=== PATIENT | female | born 1950 | race Caucasian/White ===

== ENCOUNTER 2021-01-31 04:16 | Observation (INO) ==
[2021-01-31] MEDS ORDERED: MoRPHine SULFATE 4 MG/ML 1 ML CARP\\VIAL IV STA (04:41)
[2021-01-31] MEDS ORDERED: ONDANSETRON INJ 2 MG/ML 2 ML VIAL IV STA (04:41)
[2021-01-31] MEDS ORDERED: SODIUM CHLORIDE 0.9% 500 ML IV STA (04:41)
--- NOTE | 2021-01-31 04:47 | Emergency Department Note ---
History of Present Illness General Chief complaint: Abdominal Pain Stated complaint: ABD PAIN AND BACK PAIN,NAUSEA Time Seen by Provider: 01/31/21 04:32 History of Present Illness Maximum Pain Intensity: 8 This 71-year-old presents to the ER complaining of upper abdominal pain with nausea since 2 AM Location: Upper abdomen Quality: Painful Severity: Moderate Duration: Today Timing: Today Context: Patient was concerned and came in Modifying factors: better with nothing; worse with palpation Patient denies chest pain, dyspnea, vomiting, diarrhea, urinary symptoms. Patient had lasagna for dinner. No history of similar symptoms in the past. No prior heart disease. She does not smoke. She has received the Covid vaccine. Past Med/Surg History Medical History High blood pressure Surgical History H/O section Social History Smoking Status: Former smoker Feels Safe at Home: Yes Review of Systems A total of 10 systems reviewed and were otherwise negative Physical Exam Vital Signs Vital Signs - 24 hr 01/31/21 04:20 01/31/21 04:41 01/31/21 05:40 Temperature 36.9 C Temperature Source Temporal Artery Scan Pulse Rate 63 58 L Pulse Rate [Brachial] 58 L 55 L Respiratory Rate 18 18 20 Respiratory Effort / Characteristics Non-Labored Spontaneous Respiratory Depth Normal Blood Pressure 212/97 H Blood Pressure [Left Arm] 211/99 H 212/93 H Blood Pressure Mean 135 Blood Pressure Mean [Left Arm] 136 132 Pulse Oximetry 98 98 94 Oxygen Delivery Method Room Air Room Air Room Air Sepsis Recent Fever Within 48 Hours No Sepsis New/Unexplained Change in Mental Status N/A Sepsis Action Taken by Nursing No Action Required VITALS: Vitals are noted on the nurse's note and reviewed by myself. Vital signs hypertensive. GENERAL: Pleasant female who appears in pain, in no acute distress, nondiaphoretic, well-developed well-nourished. SKIN: The skin was without rashes, erythema, edema, or bruising. There is no tenting of the skin. Capillary reflex less than 2 seconds. HEAD: Normocephalic atraumatic. EARS: External auditory canals clear, EYES: Pupils equal round and reactive to light and accommodation. Conjunctivae without injection, sclerae without icterus. Extraocular movements intact. NOSE: Patent, turbinates without inflammation or discharge. MOUTH: Mucous membranes moist. Pharynx without erythema or exudate. Uvula midline. Airway patent. Tongue does not deviate. NECK: Supple without nuchal rigidity. No lymphadenopathy. No thyromegaly. Cervical spine is nontender. No JVD. HEART: Regular rate and rhythm LUNGS: Clear to auscultation bilaterally without wheezes, rales or rhonchi. No retractions or accessory muscle use. ABDOMEN: Positive bowel sounds x 4. Normal tympanic percussion. Soft, tender to palpation right upper quadrant, without masses or organomegaly. No guarding or rebound tenderness. No CVA tenderness MUSCULOSKELETAL: No muscle atrophy, erythema, or edema noted. NEURO: Patient was alert and oriented to person place and time. Normal sensation to light and sharp touch. No focal neurological deficits. Course Administered Medications Discontinued Medications Sodium Chloride (Nss) 500 mls @ 999 mls/hr IV .Q31M STA Stop: 01/31/21 05:11 Last Infusion: 01/31/21 05:35 Dose: 0 mls/hr Documented by: [id number] Admin: 01/31/21 04:59 Dose: 999 mls/hr Documented by: [id number] Morphine Sulfate (Morphine Sulfate 4 Mg/Ml 1 Ml Carp\Vial) 4 mg IV NOW STA Stop: 01/31/21 04:42 Last Admin: 01/31/21 04:59 Dose: 4 mg Documented by: [id number] Ondansetron HCl (Ondansetron Inj 2 Mg/Ml 2 Ml Vial) 4 mg IV NOW STA Stop: 01/31/21 04:42 Last Admin: 01/31/21 04:59 Dose: 4 mg Documented by: [id number] Medical Decision Making Medical Records Attestation: I reviewed the patient's medical records. Home Medications Current Medication List: was personally reviewed by me Laboratory Data Attestation: I reviewed the patient's lab results. Result diagrams: 01/31/21 04:45 01/31/21 04:45 Lab Results 01/31/21 01/31/21 Range/Units 04:45 04:45 WBC 5.53 (4.8-10.8) K/uL RBC 4.16 L (4.2-5.4) M/uL Hgb 12.1 (12.0-16.0) g/dL Hct 38.4 (37-47) % MCV 92.3 (80-100) fL MCH 29.1 (25-34) pg MCHC 31.5 L (32-36) g/dL RDW Std Deviation 45.2 (36.4-46.3) fL RDW Coeff of Carey 13.4 (11.5-14.5) % Plt Count 287 (130-400) K/uL MPV 10.6 H (7.4-10.4) fL Immature Gran % (Auto) 0.0 % Neut % (Auto) 59.2 % Lymph % (Auto) 24.2 % Blount % (Auto) 10.5 % Eos % (Auto) 5.4 % Baso % (Auto) 0.7 % Neut # (Auto) 3.27 (1.4-6.5) K/uL Lymph # (Auto) 1.34 (1.2-3.4) K/uL Blount # (Auto) 0.58 (0.11-0.59) K/uL Eos # (Auto) 0.30 (0-0.5) K/uL Baso # (Auto) 0.04 (0-0.2) K/uL Immature Gran # (Auto) 0.00 (0.00-0.02) K/uL Sodium 138 (136-145) mmol/L Potassium 4.0 (3.5-5.1) mmol/L Chloride 107 (98-107) mmol/L Carbon Dioxide 27 (21-32) mmol/L Anion Gap 4.0 (3-11) BUN 24 H (7-18) mg/dl Creatinine 0.52 L (0.6-1.2) mg/dl Est Cr Clr Drug Dosing 88.3 ml/min Est GFR ( Amer) 113.0 ml/min Est GFR (Non-Af Amer) 97.5 ml/min BUN/Creatinine Ratio 46.0 H (10-20) Glucose 99 (70-99) mg/dl Calcium 9.6 (8.5-10.1) mg/dl Total Bilirubin 0.3 (0.2-1) mg/dl AST 26 (15-37) U/L ALT 23 (12-78) U/L Alkaline Phosphatase 86 (45-117) U/L Troponin I 0.041 (0-0.045) ng/ml Total Protein 7.5 (6.4-8.2) gm/dl Albumin 3.7 (3.4-5.0) gm/dl Globulin 3.8 (2.5-4.0) gm/dl Albumin/Globulin Ratio 1.0 (0.9-2) Lipase 207 (73-393) U/L Imaging Data Attestation: I personally reviewed and interpreted this imaging study as follows: MDM Narrative Prior records/ancillary studies reviewed. Triage Nursing notes reviewed. Additional history obtained from nursing. The patient's history was concerning for abdominal pain. Differential diagnosis: Etiologies such as appendicitis, diverticulitis, PUD, biliary pathology, UTI, pancreatitis, obstruction, mesenteric ischemia, aortic pathology, infections, inflammatory bowel disease, renal colic, as well as others were entertained. Physical examination findings: As above. ER treatment provided: An order was placed for continuous cardiac monitoring. The monitor shows a rate of 60-100 with a sinus rhythm. IV fluids, morphine, Zofran On reassessment the patient felt better. Diagnostics interpreted by me: ECG: Ordered for upper abdominal pain EKG: Normal sinus, normal intervals, no acute ST-T wave changes. Impression normal sinus rhythm interpreted by myself I think arrhythmia is unlikely. EKG shows normal sinus rhythm with no interval abnormalities such as QT prolongation or WPW. There are no findings to suggest Brugada syndrome. Cardiac monitoring in the emergency department reveals no tachycardic or bradycardic dysrhythmia. Hypertrophic cardiomyopathy was considered but there are no clear historical elements pointing toward this. EKG is not suggestive. The QRS voltage is not extremely large and there are no suggestive Q waves. The labs revealed negative troponin, no leukocytosis, stable LFTs Imaging studies: US RUQ: Cholelithiasis. Borderline gallbladder wall thickness. Common bile duct within normal limits. Indeterminate sonographic Bruce's sign due to pain medication. Correlate clinically regarding cholecystitis. Septated or adjacent cystic structures at the left liver. Small right renal cyst. Consultation: A consultation was placed with the surgical PAJn. The case was discussed and diagnostics were reviewed. The patient was evaluated in the ER for further treatment. Exam and history seem consistent with acute cholecystitis. Surgery will evaluate. They will admit. Patient is agreeable. Stable labs. By the evaluation outlined above emergent etiologies such as appendicitis, diverticulitis, UTI, pancreatitis, obstruction, mesenteric ischemia, aortic pathology, inflammatory bowel disease, renal colic, as well as others were deemed relatively unlikely. The pt informed about the findings as listed above. All questions were answered and pleased with the treatment. The chart was completed utilizing [employer] Speech voice recognition software. Grammatical errors, random word insertions, pronoun errors, and incomplete sentences are an occassional consequence of this system due to software limitations, ambient noise, and hardware issues. Any formal questions or concerns about the content, text, or information contained within the body of this dictation should be directly addressed to the physician assistant project manager for clarification. Impression & Plan Cholecystitis Discharge Plan Visit Data Chief Complaint: Abdominal Pain Stated Complaint: ABD PAIN AND BACK PAIN,NAUSEA ED Provider: Mariajose Vasquez ED Midlevel Provider: Annetta Shultz Discharge Problem: Cholecystitis Patient Disposition: Being Evaluated by Surgeon Condition: Good Forms Stand Alone Forms: [facility], [facility] Referrals Referrals: PCP,NO [Physician] -
[2021-01-31 05:12] LABS: Basophils # (auto) 0.04 K/uL (0-0.2); Basophils % (auto) 0.7 %; Eosinophils % (auto) 5.4 %; Hematocrit (blood only) 38.4 % (37-47); Hemoglobin 12.1 g/dL (12.0-16.0); Lymphocytes # (auto) 1.34 K/uL (1.2-3.4); Lymphocytes % (auto) 24.2 %; Mean Corpuscular Hemoglobin 29.1 pg (25-34); Mean Corpuscular Hgb Conc 31.5 g/dL (32-36); Mean Corpuscular Volume 92.3 fL (80-100); Mean Platelet Volume 10.6 fL (7.4-10.4); Monocytes # (auto) 0.58 K/uL (0.11-0.59); Monocytes % (auto) 10.5 %; Neutrophils # (auto) 3.27 K/uL (1.4-6.5); Neutrophils % (auto) 59.2 %; Platelet Count 287 K/uL (130-400); RDW Coefficient of Variation 13.4 % (11.5-14.5); RDW Standard Deviation 45.2 fL (36.4-46.3); Red Blood Count 4.16 M/uL (4.2-5.4); White Blood Count 5.53 K/uL (4.8-10.8)
[2021-01-31 05:36] LABS: Albumin Level 3.7 gm/dl (3.4-5.0); Bilirubin,Total 0.3 mg/dl (0.2-1); Calcium 9.6 mg/dl (8.5-10.1); Creatinine Clr Calc Pharmacy 88.3 ml/min; Est GFR (Non-African American) 97.5 ml/min; Globulin 3.8 gm/dl (2.5-4.0); Total Protein 7.5 gm/dl (6.4-8.2); Troponin I 0.041 ng/ml (0-0.045)
[2021-01-31] MEDS ORDERED: cefOXitin 2,000 MG/60 ML BAG IV STA (06:17)
--- NOTE | 2021-01-31 06:20 | History & Physical Report ---
Date of Service January 31, 2021 Assessment & Plan (1) Cholecystitis: Plan: We admit the patient to the hospital proceed as follows: We will keep her n.p.o. We will provide IV fluid for hydration Provide analgesics Provide antiemetics Initiate antibiotics in the form of Mefoxin We will check a preoperative chest x-ray We will check a Covid test Due to her elevated hypertension we will asked the hospitalists to evaluate. I discussed the case with the [facility] hospitalist they have agreed to see this patient. Due to her clinical presentation and imaging we will plan on cholecystectomy later today. We will use SCDs for DVT prevention no chemical means due to planned surgery Additional recommendation will be based on operative findings and her clinical course as it unfolds Dr. Tran discussed laparoscopic cholecystectomy with the patient and her hu sband They agree and wish to proceed History of Present Illness Chief Complaint: Abdominal pain Primary Care Provider: Shona RiosDO Is a 71-year-old female who presented [facility] emergency department secondary to abdominal pain. Patient notes that the pain is primarily located the right side of her abdomen and is worse with palpation. She says the pain does radiate somewhat to her right shoulder. She denies any fevers, shakes, chills. She did have associated nausea without vomiting. She does note that the pain occurred approximately 20 to 30 minutes after eating a meal. She notes that looking back over the past several weeks she does get some minor pain in the right upper quadrant of her abdomen after eating but has never been this severe. She does not identify any other palliative or provocative factors. She notes that she has had prior surgeries on her abdomen consisting of 2 C-sections. In the emergency department the patient did have labs and imaging which I reviewed. The gallbladder ultrasound showed borderline gallbladder wall thickening with noted gallstones. CBC showed her white blood cell count, hemoglobin, hematocrit, and platelet count are all within normal range. Chemistry profile showed her sodium, potassium, and LFTs were all normal. Her lipase was not elevated. Her creatinine was noted to be low at 0.52. She did have an EKG that showed no evidence of ischemic changes. At the time of my interview the patient is resting comfortably in bed. She was in no distress. Home Medications Medication Instructions Recorded Confirmed Type doxycycline hyclate 50 mg capsule 50 mg PO DAILY 01/31/21 01/31/21 History hydrochlorothiazide 12.5 mg tablet 12.5 mg PO DAILY 01/31/21 01/31/21 History metronidazole 0.75 % topical cream 1 applic TOPICAL BID 01/31/21 01/31/21 History Past Med/Surg History Medical History High blood pressure Surgical History H/O section Social History Smoking Status: Former smoker Feels Safe at Home: Yes Review of Systems Constitutional: no fever and no chills Eyes: no diplopia Ear, Nose, Mouth, Throat: no ear pain Respiratory: no cough and no dyspnea Cardiovascular: no chest pain Gastrointestinal: + abdominal pain and + nausea; no vomiting Genitourinary: no dysuria Musculoskeletal: no back pain Integumentary: no rash Neurologic: no localized weakness Physical Exam Constitutional: well developed and well nourished; no acute distress Eyes: Wears glasses ENMT: Ears: no hearing impairment Neck: trachea midline Respiratory: normal respiratory effort; no respiratory distress and no labored breathing Cardiovascular: RRR, no murmur, no edema Gastrointestinal (Abdomen): Abdomen is soft and nondistended. There is no rebound tenderness or guarding. The patient had marked tenderness in the right upper quadrant with a positive Bruce sign Skin: no rashes Neurologic: moves all extremities Psychiatric: A+Ox3, euthymic affect Results & Data Results & Data ([facility]) Vital Signs (Past 12 Hours) Vital Signs Temp Pulse Pulse Resp BP BP Pulse Ox 01/31/21 05:40 55 L 20 212/93 H 94 01/31/21 04:41 58 L 58 L 18 211/99 H 98 01/31/21 04:20 36.9 C 63 18 212/97 H 98 PG Care Time/CCT Total # of Minutes Spent Total Time Spent with Patient: Total time spent is greater than 50% in coordination of care (as documented) at patient's floor/unit and/or counseling patient: Coding Level of Care Code INT OBSERVATION CARE 70M LVL 3 Diagnoses Cholecystitis K81.9
[2021-01-31] MEDS ORDERED: MoRPHine SULFATE 4 MG/ML 1 ML CARP\\VIAL IV PRN (06:24)
[2021-01-31] MEDS ORDERED: ONDANSETRON INJ 2 MG/ML 2 ML VIAL IV PRN ×2 (06:24→13:58)
--- NOTE | 2021-01-31 06:35 | Ultrasound Report ---
US gallbladder CLINICAL HISTORY: Right upper quadrant abdominal pain. COMPARISON STUDY: No previous studies for comparison. FINDINGS: Liver morphology is normal. Several hepatic cysts measure up to 1.9 cm per there is no bili manuel ductal dilatation. The common bile duct measures 4 mm in caliber. There are multiple gallstones w ithin the gallbladder including a nonmobile stones within the gallbladder neck. Gallbladder is mildly distended. There is borderline gallbladder wall thickening. No pericholecystic fluid is noted. Sonog raphic Bruce sign could not be assessed for in this patient. Pancreatic body is normal. Head and neri l are obscured. There is no right hydronephrosis. There is a 1.9 cm right renal cyst. IMPRESSION: 1. Cholelithiasis with borderline gallbladder wall thickening. Mild gallbladder distention. Acute cho lecystitis would be difficult to exclude. 2. No biliary ductal dilatation. ACT 112: Negative or not required by law. Electronically signed by: Helder Gilmore M.D. 01/31/2021 6:34 AM
[2021-01-31] MEDS ORDERED: hydrALAZINE HCL 20 MG/ML VIAL IV STA (06:36)
[2021-01-31] MEDS ORDERED: hydrALAZINE HCL 20 MG/ML VIAL IV PRN (06:38)
--- NOTE | 2021-01-31 06:41 | XRay Report ---
XR chest 1V portable CLINICAL HISTORY: Preoperative evaluation. COMPARISON STUDY: No previous studies for comparison. FINDINGS: Lung volumes are normal. Lungs are clear. There is no pneumothorax or pleural effusion. Car diac size is normal. Mediastinal contours are normal. There is no evidence for pulmonary edema. IMPRESSION: No acute cardiopulmonary findings. ACT 112: Negative or not required by law. Electronically signed by: Helder Gilmore M.D. 01/31/2021 6:40 AM
[2021-01-31 06:48] LABS: Appearance Urine Clear (Clear); Bilirubin Urine Negative (Negative); Blood Urine Negative (Negative); Color Urine Yellow; Glucose Urine UA Negative (Negative); Ketones Urine Negative (Negative); Leukocyte Esterase Urine Trace (Negative); Nitrite Urine Negative (Negative); Protein Urine Negative (Negative); Urobilinogen Urine Negative (Negative); pH Urine 6.5 (4.5-7.5)
[2021-01-31] MEDS: LACTATED RINGER'S 1,000 ML IV SCH ×2 (06:51→20:21)
[2021-01-31 06:57] LABS: Epithelial Cell Urine 0-5 /lpf (0-5)
[2021-01-31 06:58] LABS: Bacteria Urine Negative (Negative); RBC Urine 0-4 /hpf (0-4); WBC Urine 0-5 /hpf (0-5)
--- NOTE | 2021-01-31 09:56 | Electrocardiogram Report ---
Test Reason : Blood Pressure : / mmHG Vent. Rate : 069 BPM Atrial Rate : 069 BPM P-R Int : 174 ms QRS Dur : 094 ms QT Int : 394 ms P-R-T Axes : 050 -05 061 degrees QTc Int : 422 ms Normal sinus rhythm Possible Left atrial enlargement Borderline ECG No previous ECGs available Confirmed by Carlos Almeida ([id number]) on 01/31/2021 9:56:15 AM Referred By: REFERRED SELF Confirmed By:Carlos Almeida
--- NOTE | 2021-01-31 10:18 | Consultation Report ---
DATE OF CONSULTATION: 01/31/2021 CHIEF COMPLAINT: Abdominal pain. HISTORY OF PRESENT ILLNESS: A 71-year-old female with past medical history significant for hypertension, diverticulosis of colon, rosacea, history of periorbital edema of the left eye, who presents with abdominal pain. The patient says she woke up around 2:00 a.m. with severe abdominal pain in the epigastrium and right upper quadrant radiating to back, associated with nausea. Came to ER and a gallbladder ultrasound was done, which showed cholelithiasis and possible cholecystitis. Evaluated by surgery and the patient is going for OR today, and we were called medical management. The patient says she was tearful when she came in because of the pain and all this happening, but she is okay now, pain is under control now. Denies any chest pain, no shortness of breath, no cough, no headache, no blurred visions, no earache, no runny nose, no sore throat. Normal bowel and bladder movements. ALLERGIES: No known drug allergies. PAST MEDICAL HISTORY: As mentioned above. PAST SURGICAL HISTORY: Breast lesion excision, , colonoscopy, ligation of oviducts, repair of right knee cartilage, left tendon sheath insertion. MEDICATIONS: The patient is on hydrochlorothiazide 12.5 mg p.o. daily, doxepin 50 mg p.o. daily, metronidazole topical b.i.d. FAMILY HISTORY: Significant for mother has dementia, hypertension, heart disorder, TIA; father had open heart surgery; uncle has cancer. SOCIAL HISTORY: . Former smoker, Drinks 4 times a week wine. No drug use. REVIEW OF SYSTEMS: As per HPI. Rest of review of systems negative. PHYSICAL EXAMINATION: GENERAL: The patient is of moderate build, not in acute distress. VITAL SIGNS: Temperature 36.9, pulse 55, respiratory rate 20, blood pressure 212/93, oxygen 94% on room air. HEENT: Pupils equal, round and reactive to light. Oral mucosa moist. NECK: No JVD. No neck masses. CARDIOVASCULAR: S1 and S2 heard. Regular rate and rhythm. No murmur, no gallop. RESPIRATORY SYSTEM: Normal AP diameter. No accessory muscle use. No wheezing, no crackles. ABDOMEN: Soft, bowel sounds present. Tenderness in the right upper quadrant and epigastric region. No guarding, no rigidity, no distention. CENTRAL NERVOUS SYSTEM: Cranial nerves II-XII grossly intact, nonfocal. EXTREMITIES: No edema, no erythema. LABORATORY DATA: WBC 5.5, hemoglobin 12.1, hematocrit 38.4, platelets 287. Sodium 138, potassium 4, chloride 107, bicarb 27, BUN 24, creatinine 0.5, serum glucose 99, calcium 9.6, total bilirubin 0.3, AST 26, ALT 23, alkaline phosphatase 86. Troponin I of 0.04. Lipase 207. IMAGING: Chest x-ray: No acute findings. Gallbladder ultrasound: Cholelithiasis with borderline gallbladder wall thickening, mild gallbladder distention, acute cholecystitis could be difficult to exclude. No biliary ductal dilatation. EKG: Normal sinus rhythm at a rate of 69, no acute ST changes seen. ASSESSMENT AND PLAN: This is a 71-year-old female who presents with abdominal pain and found to have possible acute cholecystitis. 1. Abdominal pain, epigastric and right upper quadrant abdominal pain, most likely cholecystitis, cholelithiasis with borderline gallbladder wall thickening and gallbladder distention on ultrasound. Evaluated by surgery. Plan to take her to operating room today and we are called for consult. Management as per general surgery.Patient is at acceptable risk to proceed with surgery. 2. Hypertension, elevated, could be situational. We will hold her home hydrochlorothiazide. IV hydralazine p.r.n. Monitor the blood pressure. 3. Rosacea, on metronidazole cream. 4. Deep venous thrombosis prophylaxis and disposition as per general surgery. Job ID: [id number] [facility]
[2021-01-31] MEDS ORDERED: DEXAMETHASONE SOD INJ 4 MG/ML VIAL ONE ×2 (10:51→12:52)
[2021-01-31] MEDS ORDERED: GLYCOPYRROLATE 0.2 MG/ML VIAL ONE ×2 (10:51→12:52)
[2021-01-31] MEDS ORDERED: NEOSTIGMINE METHYLSULFATE 1 MG/ML 10ML VIAL ONE ×2 (10:51→12:52)
[2021-01-31] MEDS ORDERED: MIDAZOLAM HCL 1 MG/ML 2ML VIAL ONE ×2 (10:51→12:52)
[2021-01-31] MEDS ORDERED: LIDOCAINE 2% 2 ML VIAL/AMP(20MG/ML) INFIL ONE ×2 (10:51→12:52)
[2021-01-31] MEDS ORDERED: fentaNYL citrate 100 MCG/2 ML VIAL ONE ×3 (10:51→15:15)
[2021-01-31] MEDS ORDERED: PROPOFOL IV EMULSION 10 MG/ML 20 ML VIAL IV ONE ×2 (10:51→12:52)
[2021-01-31] MEDS ORDERED: ONDANSETRON INJ 2 MG/ML 2 ML VIAL ONE ×2 (10:51→12:52)
[2021-01-31] MEDS: cefOXitin 2,000 MG in DEXTROSE 5% 50 ML IV SCH ×2 (12:22→17:45)
--- NOTE | 2021-01-31 13:57 | Anesthesiology Consultation ---
Date of Service January 31, 2021 Assessment & Plan Chart Review Chart Review: Acceptable Risk for Surgery Consults Requested none History Surgery Operation Date: 01/31/21 06:55 Proposed Procedures p Laparoscopic Cholecystectomy - Zenon Vivar MD, FACS Height/Weight Height: 5 ft Weight: 68.7 kg Allergies Allergy/AdvReac Type Severity Reaction Status Date / Time No Known Allergies Allergy Unverified 01/31/21 09:49 Medications Home Medications Medication Instructions Recorded Confirmed Last Taken doxycycline hyclate 50 mg capsule 50 mg PO DAILY 01/31/21 01/31/21 Unknown hydrochlorothiazide 12.5 mg tablet 12.5 mg PO DAILY 01/31/21 01/31/21 Unknown metronidazole 0.75 % topical cream 1 applic TOPICAL BID 01/31/21 01/31/21 Unknown Active Medications Generic Name Dose Route Start Last Admin Trade Name Freq PRN Reason Stop Dose Admin Hydralazine HCl 10 mg 01/31/21 06:38 01/31/21 06:51 Hydralazine Hcl 20 Mg/Ml Vial IV 03/02/21 06:37 10 mg Q6H PRN Administration Hypertension Lactated Ringer's 1,000 mls @ 75 mls/hr 01/31/21 06:30 01/31/21 06:51 Lr IV 03/02/21 06:29 75 mls/hr .[id number] ISABELLA Administration Cefoxitin Sodium 2,000 mg/ 60 mls @ 100 mls/hr 01/31/21 12:00 01/31/21 12:58 Dextrose IV 02/10/21 11:59 Infused Q6H ISABELLA Infusion Protocol Morphine Sulfate 3 mg 01/31/21 06:24 01/31/21 07:46 Morphine Sulfate 4 Mg/Ml 1 Ml Carp\Vial IV 02/14/21 06:23 3 mg Q3H PRN Administration Pain NPO Date Last Intake of Fluids: 01/30/21 Time Last Intake of Fluids: 19:00 Date Last Intake of Solids: 01/30/21 Time Last Intake of Solids: 19:00 Past Medical History Medical History High blood pressure Past Surgical History Surgical History H/O section Social History Smoking Status: Former smoker Hx Alcohol Use: Yes Alcohol type: wine alcohol intake frequency: 0-2 drinks per day Physical Exam Vital Signs Last Vital Signs Temp 36.5 C 01/31/21 09:30 Pulse 60 01/31/21 09:30 Resp 16 01/31/21 09:30 BP 151/76 H 01/31/21 09:30 Pulse Ox 99 01/31/21 09:30 Testing Laboratory Results 01/31/21 04:45 01/31/21 04:45 Urine Color Yellow 01/31/21 06:30 Urine Appearance Clear (Clear) 01/31/21 06:30 Urine pH 6.5 (4.5-7.5) 01/31/21 06:30 Ur Specific [place] 1.020 (1.000-1.030) 01/31/21 06:30 Urine Protein Negative (Negative) 01/31/21 06:30 Urine Glucose (UA) Negative (Negative) 01/31/21 06:30 Urine Ketones Negative (Negative) 01/31/21 06:30 Urine Nitrite Negative (Negative) 01/31/21 06:30 Ur Leukocyte Esterase Trace (Negative) H 01/31/21 06:30 Urine RBC 0-4 /hpf (0-4) 01/31/21 06:30 Urine WBC 0-5 /hpf (0-5) 01/31/21 06:30 Ur Epithelial Cells 0-5 /lpf (0-5) 01/31/21 06:30
[2021-01-31] MEDS ORDERED: ePHEDrine sulfate 50 MG/ML AMP IV PRN (13:58)
[2021-01-31] MEDS ORDERED: ATROPINE SULFATE 0.1 MG/ML 10ML SYR IV PRN (13:58)
[2021-01-31] MEDS ORDERED: HYDROmorphone INJ 2 MG/ML SYR/VIAL IV PRN (13:58)
[2021-01-31] MEDS ORDERED: BUPIVACAINE 0.5 % 5 MG/1 ML MPF 30ML VIAL ONE (14:05)
--- NOTE | 2021-01-31 14:18 | Hospitalist Progress Note ---
Date of Service January 31, 2021 Assessment & Plan (1) Cholecystitis: (2) Uncontrolled hypertension: Plan: 71-year-old female who presents with abdominal pain 01/31, admitted under Surgery w/ diagnosis of cholecystitis and consulted on IM for medical Mx. #. Cholecystitis came in w/ RUQ tenderness, see imaging above. COVID negative. Surgery on the case: NPO, IVF, on ATB, pain Mx per Sx, plan for inpatient cholecystectomy later today #. Hypertension BP at presentation elevated 212/97 likely 2/2 white coat HTN (pt endorses getting high BP at medical facilities) on top of acute pain CBC, CMP and UA fairly WNL will resume her home HCTZ, c/w prn iv hydralazine for high BP. #. Rosacea, on metronidazole cream. #. Deep venous thrombosis prophylaxis and disposition as per general surgery. Admission and Anticipated Discharge Date Admission Date: January 31, 2021 Subjective Patient was semi-upright in bed, NAD, on RA. Patient denies Headache, Dizziness, Fever, Chills, Sore throat, Cough, Chest pain, palpitations, SOB, pain/burning while passing urine. Last Bowel movement [today morning-small volume]. No issues overnight. Feel better than when she came in. States marked improvement in her belly pain. Physical Exam Physical Exam: GENERAL: Alert and oriented x3. NAD, on RA. HEENT: No pallor, no icterus. Pupils equal, round and reactive to light. Oral mucosa moist. NECK: No JVD, no neck masses. HEART: S1 and S2 heard. Regular rate and rhythm. No murmur, no gallop. RESPIRATORY SYSTEM: Normal AP diameter. No accessory muscle use. No wheezing, no crackles. ABDOMEN: Soft, bowel sounds present, minimal RUQ tenderness, no distention. CENTRAL NERVOUS SYSTEM: Alert and oriented x3. No facial droop. Speech is clear. Obeys simple commands. Moves extremities. EXTREMITIES: No edema, no erythema seen. Results & Data Results & Data ([facility]) Vital Signs (Past 12 Hours) Vital Signs Temp Pulse Pulse Pulse Resp BP BP 01/31/21 09:30 36.5 C 60 16 151/76 H 01/31/21 08:55 53 L 18 115/57 L 01/31/21 08:00 53 L 53 L 18 105/58 L 01/31/21 06:50 54 L 16 190/86 H 01/31/21 05:57 64 18 189/93 H 01/31/21 05:40 55 L 20 212/93 H 01/31/21 04:41 58 L 58 L 18 211/99 H 01/31/21 04:20 36.9 C 63 18 212/97 H Pulse Ox 01/31/21 09:30 99 01/31/21 08:55 99 01/31/21 08:00 98 01/31/21 06:50 94 01/31/21 05:57 97 01/31/21 05:40 94 01/31/21 04:41 98 01/31/21 04:20 98 Diagnostic Findings 01/31 GB US. Cholelithiasis with borderline gallbladder wall thickening. Mild gallbladder distention. Acute cholecystitis would be difficult to exclude. 2. No biliary ductal dilatation. 01/31 CXR: No acute cardiopulmonary findings.
[2021-01-31] MEDS ORDERED: hydroCHLOROthiazide 25 MG TAB PO ONE (14:27)
--- NOTE | 2021-01-31 14:48 | Post Operative Brief Note ---
PG Immediate Post Op with CF Date of Surgery January 31, 2021 Pre & Post Diagnosis Operation Date: 01/31/21 06:55 Pre-Op Diagnosis: Cholecystitis Post-Op Diagnosis: Cholecystitis I identified the patient and participated in the time-out.: Yes Procedure Operation Date: 01/31/21 06:55 Actual Procedures p Laparoscopic Cholecystectomy - Zenon Vivar MD, FACS Surgeon Zenon Vivar MD, FACS [employer] Supervisor Nurses Estimated Blood Loss 10 Findings Consistent with Post-Op Diagnosis Specimens Specimen Description: A. Gallbladder
[2021-01-31] MEDS ORDERED: ACETAMINOPHEN 1,000 MG/100 ML VIAL IV ONE (14:49)
[2021-01-31] MEDS: fentaNYL citrate 100 MCG/2 ML VIAL IV PRN ×2 (15:16→15:20)
--- NOTE | 2021-01-31 15:35 | Anesthesiology Progress Note ---
Date of Service January 31, 2021 Anesthesia Post Procedure Vital Signs Vital Signs: Temp Pulse Pulse Pulse Resp BP BP 01/31/21 15:27 55 L 12 132/64 01/31/21 15:20 61 14 116/61 01/31/21 15:10 65 17 175/80 H 01/31/21 15:00 36.4 C L 65 16 177/84 H 01/31/21 09:30 36.5 C 60 16 151/76 H 01/31/21 08:55 53 L 18 115/57 L 01/31/21 08:00 53 L 53 L 18 105/58 L 01/31/21 06:50 54 L 16 190/86 H 01/31/21 05:57 64 18 189/93 H 01/31/21 05:40 55 L 20 212/93 H 01/31/21 04:41 58 L 58 L 18 211/99 H 01/31/21 04:20 36.9 C 63 18 212/97 H Pulse Ox 01/31/21 15:27 99 01/31/21 15:20 99 01/31/21 15:10 99 01/31/21 15:00 100 01/31/21 09:30 99 01/31/21 08:55 99 01/31/21 08:00 98 01/31/21 06:50 94 01/31/21 05:57 97 01/31/21 05:40 94 01/31/21 04:41 98 01/31/21 04:20 98 Pain Intensity Right Abdomen: Pain Intensity: 2 Abdomen: Pain Intensity: 5 Transfer of Care Handoff Completed per policy Notes Mental Status: alert / awake / arousable and participated in evaluation Patient Amnestic to Procedure: Yes Nausea / Vomiting: adequately controlled Pain: adequately controlled Airway Patency, RR, SpO2: stable & adequate BP & HR: stable & adequate Hydration State: stable & adequate Anesthetic Complications: no major complications apparent
[2021-01-31] MEDS ORDERED: ACETAMINOPHEN 325 MG TAB PO PRN (15:56)
[2021-01-31] MEDS ORDERED: oxyCODONE HCL IR 5 MG TAB (IMMEDIATE RELEASE) PO PRN (15:56)
[2021-01-31] MEDS ORDERED: PROMETHAZINE HCL 25 MG in SODIUM CHLORIDE 0.9% 50 ML IV PRN (15:56)
[2021-01-31] MEDS ORDERED: PROMETHAZINE HCL 12.5 MG in SODIUM CHLORIDE 0.9% 50 ML IV PRN (15:56)
[2021-01-31] MEDS ORDERED: IBUPROFEN 600 MG TAB PO PRN (15:56)
[2021-01-31] MEDS: FAMOTIDINE 20 MG in SYRINGE 3 ML IV SCH (20:18)
[2021-01-31] MEDS ORDERED: HEPARIN SOD 5,000 UNIT/0.5 ML VIAL SQ SCH (21:00)
--- NOTE | 2021-01-31 22:10 | Operative Report (OR) ---
DATE OF OPERATION: 01/31/2021 OPERATION: Laparoscopic cholecystectomy. PREOPERATIVE DIAGNOSIS: Acute cholecystitis. POSTOPERATIVE DIAGNOSIS: Acute cholecystitis. SURGEON: Zenon Vivar MD ANESTHESIA: General. DESCRIPTION OF PROCEDURE: The patient was brought into the operating room and placed on the operatin g table in supine position. Her abdomen was prepped and draped in the usual fashion. A 0.5% plain M arcaine was used to anesthetize all incisions. Incision was made above the umbilicus, carried dissec tion down, identifying the fascia, placing a Veress needle producing pneumoperitoneum. An 11 mm port placed at this level and under visualization, three 5 mm ports were placed, one cephalad and two lat erally. The gallbladder was grasped and retracted. It was very distended. It was thickened and margaret matous consistent with acute cholecystitis. I tried to aspirate bile, but it was sludge-like. Disse ction was carried out the regino hepatis and identifying the cystic duct and cystic artery. These wer e clipped and transected and the gallbladder dissected away from the liver bed. There was significan t edema in the posterior wall. Gallbladder was placed in an Endobag after appropriate hemostasis and irrigation. The Endobag was removed through the umbilical site. I did have to enlarge the fascial d efect at the umbilicus to remove the gallbladder because of a large stone. Fascia at the umbilicus c losed using 0 PDS suture. The skin was reapproximated using subcuticular 4-0 Monocryl with Dermabond . The patient was transferred to recovery room in stable condition. Job ID: [id number]
[2021-02-01] MEDS: cefOXitin 2,000 MG in DEXTROSE 5% 50 ML IV SCH ×2 (00:23→06:03)
[2021-02-01] MEDS: LACTATED RINGER'S 1,000 ML IV SCH (00:23)
--- NOTE | 2021-02-01 06:05 | Surgery Progress Note ---
Date of Service February 01, 2021 Assessment & Plan (1) Cholecystitis: Plan: Patient is postop day #1 laparoscopic cholecystectomy: Continue analgesics Continue antiemetics Continue ambulation as tolerated Continue use of incentive spirometry Continue diet as tolerated We will consider discharge to home later today if patient continues to tolerate oral intake and if her labs this morning are in acceptable range Subcu heparin is in place for DVT prevention Dr. Vivar-patient doing very well and her vital signs are stable Likely discharge home today after recheck her laboratories Admission and Anticipated Discharge Date Admission Date: January 31, 2021 Subjective Patient is resting in bed. She denies shortness of breath or chest pain. She notes some incisional pain from her surgery. She had some minor nausea following her surgery but this is resolved. Concerning oral intake she is taking only some small bites of food. She is ambulated the hallway since her surgery Physical Exam Gastrointestinal (Abdomen): Abdomen is soft and nondistended. Bowel sounds are present. Her surgical incisions are all clean dry and intact. Patient has pain with palpation near her surgical incisions greatest in the right upper quadrant Results & Data ([facility] [place]) Vital Signs (Past 12 Hours) Vital Signs Temp Pulse Resp BP BP Pulse Ox 02/01/21 03:53 79 16 136/79 92 01/31/21 22:23 37.1 C 76 16 149/78 H 93 01/31/21 19:40 36.6 C 72 15 130/76 91 PG Care Time/CCT Total # of Minutes Spent Total Time Spent with Patient: Total time spent is greater than 50% in coordination of care (as documented) at patient's floor/unit and/or counseling patient: Coding Level of Care Code None Diagnoses Cholecystitis K81.9
[2021-02-01 07:50] LABS: Basophils # (auto) 0.01 K/uL (0-0.2); Basophils % (auto) 0.1 %; Eosinophils # (auto) 0.01 K/uL (0-0.5); Eosinophils % (auto) 0.1 %; Hematocrit (blood only) 36.4 % (37-47); Hemoglobin 11.4 g/dL (12.0-16.0); Immature Granulocytes # (auto) 0.04 K/uL (0.00-0.02); Immature Granulocytes % (auto) 0.3 %; Lymphocytes # (auto) 1.45 K/uL (1.2-3.4); Lymphocytes % (auto) 11.6 %; Mean Corpuscular Hemoglobin 28.9 pg (25-34); Mean Corpuscular Hgb Conc 31.3 g/dL (32-36); Mean Corpuscular Volume 92.2 fL (80-100); Mean Platelet Volume 10.7 fL (7.4-10.4); Monocytes # (auto) 1.39 K/uL (0.11-0.59); Monocytes % (auto) 11.1 %; Neutrophils # (auto) 9.64 K/uL (1.4-6.5); Neutrophils % (auto) 76.8 %; Platelet Count 263 K/uL (130-400); Red Blood Count 3.95 M/uL (4.2-5.4); White Blood Count 12.54 K/uL (4.8-10.8)
[2021-02-01 08:22] LABS: Albumin Globulin Ratio 0.9 (0.9-2); Albumin Level 3.2 gm/dl (3.4-5.0); BUN Creatinine Ratio 15.1 (10-20); Bilirubin Direct 0.1 mg/dl (0-0.2); Bilirubin,Total 0.3 mg/dl (0.2-1); Calcium 8.6 mg/dl (8.5-10.1); Creatinine Clr Calc Pharmacy 53.4 ml/min; Est GFR (African American) 79.9 ml/min; Est GFR (Non-African American) 68.9 ml/min; Globulin 3.6 gm/dl (2.5-4.0); Phosphorus 3.1 mg/dl (2.5-4.9); Potassium 3.8 mmol/L (3.5-5.1); Total Protein 6.8 gm/dl (6.4-8.2)
[2021-02-01] MEDS ORDERED: HEPARIN SOD 5,000 UNIT/0.5 ML VIAL SQ SCH (09:00)
[2021-02-01] MEDS ORDERED: hydroCHLOROthiazide 25 MG TAB PO SCH (09:00)
--- NOTE | 2021-02-01 09:31 | Discharge Summary (DS) ---
DATE OF ADMISSION: 01/31/2021 DATE OF DISCHARGE: 02/01/2021 DATE OF OPERATION: 01/31/2021 PRINCIPAL DIAGNOSIS: Acute cholecystitis. STAFF SURGEON: Dr. Vivar. PROCEDURE: The patient underwent laparoscopic cholecystectomy. HISTORY OF PRESENT ILLNESS: The patient is a 71-year-old female presenting to the Emergency Room wit h abdominal pain and found to have acute cholecystitis on imaging. She was taken to the operating ro om on 01/31/2021 where she underwent laparoscopic cholecystectomy, which showed significant acute cho lecystitis. She has done well from her operation, stable overnight and felt stable for discharge pia e today to be kept on antibiotics and analgesics, to be seen in the surgical clinic within 1-2 weeks. Job ID: [id number]
[2021-02-01] MEDS: FAMOTIDINE 20 MG in SYRINGE 3 ML IV SCH (09:55)
== END 2021-02-01 12:32 | disposition home or self-care (01) ==
LOC: 3N 04:16 → ED 04:16 → 3N 08:55

== ENCOUNTER 2025-03-21 21:08 | Observation (INO) ==
--- NOTE | 2025-03-21 21:41 | Emergency Department Note ---
Impression & Plan Left ureteral stone, Uncontrolled hypertension, Chest pain ED Provider Note CHIEF COMPLAINT: Abdominal and chest pain HISTORY OF PRESENTING ILLNESS: This 75-year-old female patient presents to the emergency department with her for evaluation of left lower quadrant abdominal pain that radiates into her back and chest. The patient states that the chest pain is now getting worse and going into her back and the abdominal pain is worse and going into her back. The patient states that she cannot stand the pain. She is having some shortness of breath with the symptoms as well. Denies any nausea or vomiting. Symptoms started half an hour prior to arrival. The patient's blood pressure was also significantly elevated at 203/102. The patient denies any urinary symptoms or problems with her bowel movements. She denies any fevers, cough, or URI symptoms. REVIEW OF SYSTEMS: See HPI for pertinent positives and pertinent negatives. ALLERGIES: NKDA MEDICATIONS: See below PAST MEDICAL HISTORY: See below PHYSICAL EXAM: VITALS: Vitals are noted on the nurse's note and reviewed by myself. GENERAL: The patient appears in a significant amount of pain. She is twisting and turning in the bed and saying the pain is going from her chest to her back and her abdomen to her back. The patient's blood pressure is also very elevated. She is mildly diaphoretic. SKIN: Capillary refill <2 sec. EYES: PERRLA. EOMI. Conjunctivae without injection, sclerae without icterus. NOSE: Patent without discharge. MOUTH: Mucous membranes moist. Uvula midline. Airway patent. NECK: Supple without nuchal rigidity. HEART: Regular rate and rhythm without murmurs gallops or rubs. LUNGS: Clear to auscultation bilaterally without wheezes, rales or rhonchi. No retractions or accessory muscle use. ABDOMEN: Initial exam was somewhat limited due to the patient's significant amount of pain and discomfort with laying still. On repeat abdominal exam after pain medication, the patient has positive bowel sounds x 4. Normal tympanic percussion. Soft, diffusely tender to palpation with no maximal area of tenderness. No masses or hepatosplenomegaly. Bruce sign negative. No CVA tenderness. No guarding, rigidity, or rebound tenderness. No focal RLQ or LLQ tenderness. NEURO: Patient was alert and oriented. No focal neurological deficits. DIFFERENTIAL DIAGNOSIS: Differential diagnosis includes aortic dissection, pneumothorax, hemothorax, AK, PE, hepatitis, pancreatitis, cholecystitis, cholelithiasis, appendicitis, kidney stone, pyelonephritis, UTI, gastritis, gastroenteritis, mesenteric adenitis, obstruction, constipation, hernia, abdominal abscess, perforation, diverticulitis, IBD, ischemic colitis, abdominal aortic aneurysm, , ectopic , ovarian cyst, ovarian torsion, acute salpingitis, or others. ED COURSE AND MEDICAL DECISION MAKING: HISTORY FROM INDEPENDENT HISTORIAN: Additional history obtained from the patient's MEDICATIONS GIVEN: A total of 750 mL normal saline solution bolus. Fentanyl 50 mcg IV, Zofran 4 mg IV. Morphine 2 mg IV and Reglan 10 mg IV. Tylenol 1000 mg IV and Toradol 10 mg IV. Flomax 0.4 mg p.o. MONITOR: Continuous child monitor: Order was placed for continuous child monitor. Patient was placed on the child monitor and continuous pulse ox. Patient was noted to be in normal sinus rhythm at an initial rate of 90 bpm per my interpretation. EKG: EKG was interpreted by myself as normal sinus rhythm at 65 bpm with no acute ST or T wave changes. INTERPRETATION OF LABS: I interpreted the labs with full lab results as below in the lab section of this note. Laboratory results pertinent to the emergent complaint are discussed in the MDM section below. The patient was advised to follow up with their PCP and/or specialist(s) for further outpatient monitoring and management of any abnormal results. INTERPRETATION OF IMAGING: Imaging studies were interpreted by myself and read by radiology as per the imaging section of this note. The patient was advised to follow up with their PCP and/or specialist(s) for further outpatient management of any non-emergent abnormal findings. CTA of the chest with and without contrast with dissection protocol showed no evidence of aneurysm or dissection, but the thoracic aorta is slightly calcified. No pulmonary emboli. There is perinephric edema involving the partially visualized left kidney. Trace amount of scattered subsegmental atelectasis in the lung bases. No acute infiltrate or consolidation. CTA of the abdomen and pelvis with and without contrast for dissection protocol showed no evidence for dissection. There is mild left hydronephrosis and hydroureter down to a 5 mm calculus in the left ureterovesicular junction. There is slightly delayed left nephrogram. No other acute abnormalities. CONSULTATIONS: On-call hospitalist CRITICAL CARE: I have personally spent 35 minutes of critical care time in the direct management of this patient. This includes bedside care, interpretation of diagnostic studies, and testing, discussion with consultants, patient, and family members, and other required patient management activities. This 35 minutes is in excess of all separately billable procedures. MDM SUMMARY: The patient was seen during a time of extreme volume and extreme acuity. Nursing triage protocols were initiated with IV lock, labs, and/or imaging studies conducted by protocol in the triage area. After the patient was taken to a room, nursing staff came to let me know that the patient was in a significant amount of pain and her blood pressure was significantly elevated. I came in to evaluate the patient and there was concern for possible aortic dissection due to the description of her symptoms, the amount of discomfort she was in, and her elevated blood pressure. I-STAT labs were obtained and the patient was taken down to CT scan with dissection protocol. CTA of the chest with and without contrast with dissection protocol showed no evidence of aneurysm or dissection, but the thoracic aorta is slightly calcified. No pulmonary emboli. There is perinephric edema involving the partially visualized left kidney. Trace amount of scattered subsegmental atelectasis in the lung bases. No acute infiltrate or consolidation. CTA of the abdomen and pelvis with and without contrast for dissection protocol showed no evidence for dissection. There is mild left hydronephrosis and hydroureter down to a 5 mm calculus in the left ureterovesicular junction. There is slightly delayed left nephrogram. No other acute abnormalities. The patient was initially medicated with fentanyl 50 mcg IV, but she did have a period of hypoxia after the pain medication and had to be placed on 2 L of oxygen by nasal cannula. Therefore, additional pain medication was administered with caution. The patient's blood pressure did remain elevated up to a maximum of 223/144 until her pain was much better controlled after the above medications. After her pain was controlled, her blood pressure normalized. The patient denied any headaches or neurologic symptoms with the elevated blood pressure. White blood cell count was normal at 9.41. Hemoglobin normal at 13.2. Platelet count normal at 253. Coags were normal. Glucose 138 and alk phos 105, but CMP otherwise without concerning abnormalities. High-sensitivity troponin normal. Urinalysis with trace blood, but no evidence for UTI. The patient's pain had been controlled with the above medications. However, the patient required multiple doses of medication as her pain would return after the pain medication was administered. Along with the patient's continued pain and her significantly elevated blood pressures as well as hypoxia with the initial pain medication, I feel the patient would benefit from admission for further pain management and stabilization/monitoring of her blood pressure. I had a meaningful discussion about this patient with Dr. Hewitt who agrees with my assessment and the treatment plan. I spoke with the on-call hospitalist who agreed to admit the patient for further evaluation and treatment. Please refer to their dictation for further details. The patient's care was transferred in stable condition. DIAGNOSIS: Left ureteral stone Chest pain Elevated blood pressure Past Med/Surg History Problem List (Updated 03/22/25 @ 19:37 by Naye Forte PA-C) Chest pain (Acute) Left ureteral stone (Acute) Renal colic on left side Hx laparoscopic cholecystectomy (02/01/21) Laparoscopic cholecystectomy. Dr. Vivar 02/01/21 Uncontrolled hypertension (Acute) Cholecystitis (Acute) Medical History High blood pressure Surgical History H/O section Social History Smoking Status: Former smoker Hx Alcohol Use: Yes Alcohol type: wine Hx Substance Use: No Preferred Language: Lithuanian Communication Ability: Effective Visual Impairment: No Limitations Hand Model Required: No Beliefs That Will Affect Care: None Current Living Situation: Spouse Feels Safe at Home: Yes Assistive Devices: None Allergies Allergies Allergy/AdvReac Type Severity Reaction Status Date / Time No Known Allergies Allergy Verified 03/21/25 22:59 Home Meds Home Medications Medication Instructions Recorded Confirmed doxycycline hyclate 50 mg capsule 50 mg PO Q OTHER DAY 01/31/21 03/21/25 albuterol sulfate 90 mcg/actuation 2 puff inhalation Q4H PRN Wheezing 03/21/25 03/21/25 aerosol inhaler bupropion HCl 300 mg 24 hr tablet, 300 mg PO QAM 03/21/25 03/21/25 extended release losartan 100 mg tablet 100 mg PO DAILY 03/21/25 03/21/25 rosuvastatin 5 mg tablet 5 mg PO DAILY 03/21/25 03/21/25 valacyclovir 1 gram tablet 2 mg PO BID PRN Cold Sores 03/21/25 03/21/25 Previous Rx's Medication Instructions Recorded acetaminophen 325 mg capsule 650 mg (2 x 325 mg) PO Q6H PRN 02/01/21 fever or pain #30 caps oxycodone 5 mg tablet 5 mg PO Q4H PRN pain #14 tabs 03/22/25 tamsulosin 0.4 mg capsule 0.4 mg PO QAM #20 caps 03/22/25 Results & Data (ED) Vital Signs Vital Signs - 24 hr 03/21/25 21:30 03/21/25 21:39 03/21/25 22:21 Pulse Rate 73 77 Pulse Rate [Finger] Pulse Rate from SpO2 Sensor 74 Pulse Rhythm [Finger] Pulse Strength [Finger] Respiratory Rate 30 H Respiratory Effort / Characteristics Respiratory Depth Respiratory Pattern Blood Pressure 238/119 H Blood Pressure [Right Arm] Blood Pressure Mean 158 Blood Pressure Mean [Right Arm] Blood Pressure Position [Right Arm] Pulse Oximetry 97 83 L Oxygen Delivery Method Room Air Nasal Cannula Oxygen Flow Rate 0 Oxygen Flow Rate - Titration 2 Pulse Oximetry Post Tiitration 95 03/21/25 22:24 03/21/25 22:30 03/21/25 23:31 Pulse Rate 80 78 74 Pulse Rate [Finger] Pulse Rate from SpO2 Sensor 79 Pulse Rhythm [Finger] Pulse Strength [Finger] Respiratory Rate 24 20 20 Respiratory Effort / Characteristics Respiratory Depth Respiratory Pattern Blood Pressure 234/121 H 223/144 H 203/104 H Blood Pressure [Right Arm] Blood Pressure Mean 164 170 117 Blood Pressure Mean [Right Arm] Blood Pressure Position [Right Arm] Pulse Oximetry 97 97 96 Oxygen Delivery Method Oxygen Flow Rate Oxygen Flow Rate - Titration Pulse Oximetry Post Tiitration 03/21/25 23:39 03/22/25 00:00 03/22/25 00:00 Pulse Rate 66 62 Pulse Rate [Finger] 60 Pulse Rate from SpO2 Sensor 66 62 Pulse Rhythm [Finger] Regular Pulse Strength [Finger] Normal Respiratory Rate 22 20 19 Respiratory Effort / Characteristics Non-Labored Spontaneous Respiratory Depth Normal Respiratory Pattern Regular Blood Pressure Blood Pressure [Right Arm] 167/83 H Blood Pressure Mean Blood Pressure Mean [Right Arm] 111 Blood Pressure Position [Right Arm] Lying Pulse Oximetry 96 99 99 Oxygen Delivery Method Nasal Cannula Oxygen Flow Rate 2 Oxygen Flow Rate - Titration Pulse Oximetry Post Tiitration 03/22/25 00:00 03/22/25 00:00 03/22/25 00:15 Pulse Rate 65 Pulse Rate [Finger] Pulse Rate from SpO2 Sensor 66 Pulse Rhythm [Finger] Pulse Strength [Finger] Respiratory Rate 21 Respiratory Effort / Characteristics Respiratory Depth Respiratory Pattern Blood Pressure 167/83 H 167/83 H Blood Pressure [Right Arm] Blood Pressure Mean 116 116 Blood Pressure Mean [Right Arm] Blood Pressure Position [Right Arm] Pulse Oximetry 95 Oxygen Delivery Method Nasal Cannula Oxygen Flow Rate 3 Oxygen Flow Rate - Titration Pulse Oximetry Post Tiitration 03/22/25 00:30 03/22/25 00:30 03/22/25 00:30 Pulse Rate 59 L Pulse Rate [Finger] Pulse Rate from SpO2 Sensor 60 Pulse Rhythm [Finger] Pulse Strength [Finger] Respiratory Rate 18 Respiratory Effort / Characteristics Respiratory Depth Respiratory Pattern Blood Pressure 140/76 140/76 Blood Pressure [Right Arm] Blood Pressure Mean 94 94 Blood Pressure Mean [Right Arm] Blood Pressure Position [Right Arm] Pulse Oximetry 96 Oxygen Delivery Method Oxygen Flow Rate Oxygen Flow Rate - Titration Pulse Oximetry Post Tiitration 03/22/25 00:46 03/22/25 00:46 03/22/25 01:00 Pulse Rate Pulse Rate [Finger] Pulse Rate from SpO2 Sensor Pulse Rhythm [Finger] Pulse Strength [Finger] Respiratory Rate Respiratory Effort / Characteristics Respiratory Depth Respiratory Pattern Blood Pressure 147/67 H 147/67 H 135/66 Blood Pressure [Right Arm] Blood Pressure Mean 108 108 95 Blood Pressure Mean [Right Arm] Blood Pressure Position [Right Arm] Pulse Oximetry Oxygen Delivery Method Oxygen Flow Rate Oxygen Flow Rate - Titration Pulse Oximetry Post Tiitration 03/22/25 01:00 03/22/25 01:00 03/22/25 01:09 Pulse Rate 66 Pulse Rate [Finger] Pulse Rate from SpO2 Sensor 65 Pulse Rhythm [Finger] Pulse Strength [Finger] Respiratory Rate 21 Respiratory Effort / Characteristics Respiratory Depth Respiratory Pattern Blood Pressure 135/66 135/66 Blood Pressure [Right Arm] Blood Pressure Mean 95 95 Blood Pressure Mean [Right Arm] Blood Pressure Position [Right Arm] Pulse Oximetry 94 Oxygen Delivery Method Oxygen Flow Rate Oxygen Flow Rate - Titration Pulse Oximetry Post Tiitration Laboratory Data 03/22/25 06:47 03/22/25 06:47 Lab Results 03/21/25 03/21/25 03/21/25 Range/Units 21:25 21:57 23:30 WBC 9.41 (4.8-10.8) K/ul RBC 4.31 (4.20-5.40) M/uL Hgb 13.2 (12.0-16.0) g/dl POC Hgb 13.6 (12.0-16.0) g/dl Hct 41.2 (37.0-47.0) % POC Hct 40 (37-47) % MCV 95.6 (80.0-100.0) fL MCH 30.6 (25.0-34.0) pg MCHC 32.0 (32.0-36.0) g/dL RDW Std Deviation 44.7 (36.4-46.3) fL RDW Coeff of Carey 12.6 (11.5-14.5) % Plt Count 253 (130-400) K/uL MPV 10.8 (9.4-12.4) fL Immature Gran % (Auto) 0.4 % Neut % (Auto) 68.2 % Lymph % (Auto) 17.5 % [place] % (Auto) 8.0 % Eos % (Auto) 5.0 % Baso % (Auto) 0.9 % Neut # (Auto) 6.42 (1.40-6.50) K/uL Lymph # (Auto) 1.65 (1.20-3.40) K/uL [place] # (Auto) 0.75 H (0.11-0.59) K/uL Eos # (Auto) 0.47 (0.00-0.50) K/uL Baso # (Auto) 0.08 (0.00-0.20) K/uL Immature Gran # (Auto) 0.04 (0.01-0.20) K/uL PT 10.8 (9.0-12.0) Seconds INR 1.0 (0.9-1.1) APTT 30 (21-31) Seconds PTT Ratio 1.1 POC Sodium 143 (135-144) mmol/L Sodium 142 (136-145) mmol/L POC Potassium 4.0 (3.3-5.0) mmol/L Potassium 4.1 (3.5-5.1) mmol/L POC Chloride 109 (101-112) mmol/L Chloride 108 H (98-107) mmol/L Carbon Dioxide 25 (21-32) mmol/L POC Total CO2 21 L (24-31) mmol/L Anion Gap 9 (3-11) POC Anion Gap 18.0 (16-25) mmol/L POC BUN 20 H (7-18) mg/dl BUN 20 (6-23) mg/dl Creatinine 0.91 (0.6-1.2) mg/dl POC Creatinine 1.0 (0.6-1.3) mg/dl Est Cr Clr Drug Dosing Not Reportable eGFR 66.61 BUN/Creatinine Ratio 22.0 H (10-20) Glucose 138 H (70-99(Fasting)) mg/dl POC Glucose (other) 132 H (70-99) mg/dl Calcium 9.3 (8.6-10.3) mg/dl POC Ioniz Calcium Miquel 1.16 (1.12-1.32) mmol/l Total Bilirubin 0.3 (0.2-1.0) mg/dl AST 23 (13-39) U/L ALT 18 (7-52) U/L Alkaline Phosphatase 105 H (34-104) U/L Troponin I High Sens 5.0 (0-14) pg/ml Total Protein 7.6 (6.0-8.3) gm/dl Albumin 4.4 (3.4-5.0) gm/dl Globulin 3.2 (2.5-4.0) gm/dl Albumin/Globulin Ratio 1.4 (0.9-2) Urine Color Yellow Urine Appearance Clear (Clear) Urine pH 7.5 (4.5-7.5) Ur Specific Loyal > 1.045 H (1.000-1.030) Urine Protein Negative (Negative) Urine Glucose (UA) Negative (Negative) Urine Ketones Negative (Negative) Urine Blood Trace H (Negative) Urine Nitrite Negative (Negative) Urine Bilirubin Negative (Negative) Urine Urobilinogen Negative (Negative) Ur Leukocyte Esterase Negative (Negative) Urine WBC (Auto) 0-5 (0-5) /hpf Urine RBC (Auto) 3-5 H (0-2) /hpf U Hyaline Cast (Auto) 0-2 (0-2) /lpf U Epithel Cells (Auto) 0-2 (0-2) /hpf Urine Bacteria (Auto) None Seen (None Seen) Urine Comment Administered Medications Discontinued Medications Bupropion HCl (Bupropion Xl 300 Mg Tabcr) 300 mg PO QAM ISABELLA Stop: 04/21/25 08:59 Last Admin: 03/22/25 08:47 Dose: 300 mg Documented By: AL Fentanyl Citrate (Fentanyl Citrate Pf 100 Mcg/2 Ml Vial) 50 mcg IV NOW STA Stop: 03/21/25 21:45 Last Admin: 03/21/25 21:50 Dose: 50 mcg Documented By: MIGDALIA Sodium Chloride (Nss) 500 mls @ 999 mls/hr IV .Q31M ONE Stop: 03/21/25 22:14 Last Infusion: 03/21/25 23:37 Dose: Infused Documented By: Admin: 03/21/25 22:43 Dose: 999 mls/hr Documented By: MIGDALIA Acetaminophen (Ofirmev) 1,000 mg in 100 mls @ 400 mls/hr IV NOW STA Stop: 03/21/25 22:49 Last Infusion: 03/21/25 23:05 Dose: Infused Documented By: Admin: 03/21/25 22:38 Dose: 400 mls/hr Documented By: MIGDALIA Sodium Chloride (Nss) 250 mls @ 999 mls/hr IV .Q16M ONE Stop: 03/21/25 23:21 Last Infusion: 03/21/25 23:44 Dose: Infused Documented By: Admin: 03/21/25 23:27 Dose: 999 mls/hr Documented By: MIGDALIA Sodium Chloride (Nss) 1,000 mls @ 125 mls/hr IV .Q8H ISABELLA Stop: 03/25/25 02:56 Last Infusion: 03/22/25 12:12 Dose: Infused Documented By: Admin: 03/22/25 10:43 Dose: 125 mls/hr Documented By: Infusion: 03/22/25 10:43 Dose: Infused Documented By: Admin: 03/22/25 03:12 Dose: 125 mls/hr Documented By: ELOISE Ioversol (Optiray 320 125ml) 115 ml IV ONCE ONE Stop: 03/21/25 22:06 Last Admin: 03/21/25 22:06 Dose: 115 ml Documented By: BARBARA Ketorolac Tromethamine (Ketorolac Tromethamine 15 Mg/Ml Vial) 10 mg IV NOW ONE Stop: 03/21/25 23:05 Last Admin: 03/21/25 23:26 Dose: 10 mg Documented By: MIGDALIA Losartan Potassium (Losartan Potassium 50 Mg Tab) 100 mg PO DAILY ISABELLA Stop: 04/21/25 08:59 Last Admin: 03/22/25 08:48 Dose: 100 mg Documented By: AL Metoclopramide HCl (Metoclopramide Hcl Inj 5 Mg/Ml 2 Ml Vial) 10 mg IV NOW STA Stop: 03/21/25 22:34 Last Admin: 03/21/25 22:38 Dose: 10 mg Documented By: MIGDALIA Morphine Sulfate (Morphine Sulfate 2 Mg/Ml Carp) 2 mg IV NOW STA Stop: 03/21/25 22:34 Last Admin: 03/21/25 22:38 Dose: 2 mg Documented By: MIGDALIA Ondansetron HCl (Ondansetron Inj 2 Mg/Ml 2 Ml Vial) 4 mg IV NOW STA Stop: 03/21/25 21:45 Last Admin: 03/21/25 21:50 Dose: 4 mg Documented By: MIGDALIA Rosuvastatin Calcium (Rosuvastatin Calcium 5 Mg Tab) 5 mg PO DAILY ISABELLA Stop: 04/21/25 08:59 Last Admin: 03/22/25 08:47 Dose: 5 mg Documented By: AL Tamsulosin HCl (Tamsulosin Hcl 0.4 Mg Cap) 0.4 mg PO NOW ONE Stop: 03/21/25 23:05 Last Admin: 03/21/25 23:26 Dose: 0.4 mg Documented By: MIGDALIA Tamsulosin HCl (Tamsulosin Hcl 0.4 Mg Cap) 0.4 mg PO QA ISABELLA Stop: 04/21/25 08:59 Last Admin: 03/22/25 08:48 Dose: 0.4 mg Documented By: AL Discharge Plan Visit Data Chief Complaint: Abdominal Pain Stated Complaint: ABD PAIN ED Provider: Russ Hewitt ED Midlevel Provider: Naye Forte Discharge Problem: Left ureteral stone, Uncontrolled hypertension, Chest pain Patient Disposition: Admitted As Inpatient Condition: Fair Discharge Instructions Interventions: ED Discharge Assessment Last Done: 03/22/25 02:23 Addendum March 22, 2025 21:21 I was consulted by the Advanced Practice Provider and was substantively involved in the patient's visit.This includes aspects of the HPI, MDM, diagnostic interpretations, and disposition/plan. I discussed the case with the MARTIN and agree with the findings and plan as documented in MARTIN Jann's note. Discharge Problem: Chest pain Qualifiers: Chest pain type: unspecified Qualified Code(s): R07.9 - Chest pain, unspecified
[2025-03-21] MEDS: ONDANSETRON INJ 2 MG/ML 2 ML VIAL IV STA (21:50)
[2025-03-21 21:54] LABS: Hematocrit (blood only) 41.2 % (37.0-47.0); Hemoglobin 13.2 g/dl (12.0-16.0); Immature Granulocytes # (auto) 0.04 K/uL (0.01-0.20); Immature Granulocytes % (auto) 0.4 %; Mean Corpuscular Hemoglobin 30.6 pg (25.0-34.0); Mean Corpuscular Volume 95.6 fL (80.0-100.0); Platelet Count 253 K/uL (130-400); RDW Standard Deviation 44.7 fL (36.4-46.3); Red Blood Count 4.31 M/uL (4.20-5.40); White Blood Count 9.41 K/ul (4.8-10.8)
[2025-03-21] MEDS: OPTIRAY 320 125ml IV ONE (22:06)
[2025-03-21 22:20] LABS: INR 1.0 (0.9-1.1); Partial Thromboplastin Time 30 Seconds (21-31); Prothrombin Time 10.8 Seconds (9.0-12.0)
[2025-03-21 22:30] LABS: Alanine Aminotransferase 18 U/L (7-52); Albumin Globulin Ratio 1.4 (0.9-2); Alkaline Phosphatase 105 U/L (34-104); Anion Gap 9 (3-11); Bilirubin,Total 0.3 mg/dl (0.2-1.0); Blood Urea Nitrogen 20 mg/dl (6-23); Calcium 9.3 mg/dl (8.6-10.3); Carbon Dioxide 25 mmol/L (21-32); Chloride 108 mmol/L (98-107); Globulin 3.2 gm/dl (2.5-4.0); Glucose 138 mg/dl (70-99(Fasting)); Potassium 4.1 mmol/L (3.5-5.1); Sodium 142 mmol/L (136-145); Total Protein 7.6 gm/dl (6.0-8.3)
[2025-03-21] MEDS: MoRPHine SULFATE 2 MG/ML CARP IV STA (22:38)
[2025-03-21] MEDS: ACETAMINOPHEN 1,000 MG/100 ML VIAL IV STA (22:38)
[2025-03-21] MEDS: METOCLOPRAMIDE HCL INJ 5 MG/ML 2 ML VIAL IV STA (22:38)
[2025-03-21] MEDS: SODIUM CHLORIDE 0.9% 500 ML IV ONE (22:43)
--- NOTE | 2025-03-21 22:47 | XRay Report ---
Exam(s): XR CXR 1 VIEW EXAM: XR Chest, 1 View CLINICAL HISTORY: Reason for exam: Chest pain, nonspecific. TECHNIQUE: Frontal view of the chest. COMPARISON: 01/31/2021 FINDINGS: Lungs: Soft tissue artifact of the lung bases from large body habitus and portable technique. No acute focal infiltrate or consolidation is seen. Pleural space: Unremarkable. No pneumothorax. Heart: Unremarkable. No cardiomegaly. Mediastinum: Unremarkable. Normal mediastinal contour. Bones/joints: Mild osteophytosis in the mid to lower thoracic spine, similar to previous. No acute fracture. IMPRESSION: Soft tissue artifact of the lung bases from large body habitus and portable technique. No acute focal infiltrate or consolidation is seen. Electronically signed by: Tomer Rm MD 03/21/25 22:46 PM
--- NOTE | 2025-03-21 22:51 | CT Scan Report ---
Exam(s): CTA CHEST W/WO Contrast IV Amt: 115 ML OPTIRAY 320 EXAM: CT Angiography Chest With Intravenous Contrast CLINICAL HISTORY: Reason for exam: eval aortic dissection. TECHNIQUE: Axial computed tomographic angiography images of the chest with intravenous contrast. CTDI is 47.2 mGy and DLP is 1840 mGy-cm. Automated exposure control was utilized for the study. A dose lowering technique was utilized adhering to the principles of ALARA. MIP reconstructed images were created and reviewed. CONTRAST: Patient received 115 ML OPTIRAY 320 of IV contrast COMPARISON: Chest x-ray from 03/21/2025 and 01/31/2021 FINDINGS: Pulmonary arteries: The pulmonary arterial tree is well opacified with contrast. No pulmonary emboli are identified. Aorta: The thoracic aorta is slightly calcified but nondilated. There is no aneurysm or dissection. Lungs: Trace amount of scattered subsegmental atelectasis in the lung bases. No acute appearing infiltrate or consolidation is seen. Pleural space: Unremarkable. No significant effusion. No pneumothorax. Heart: Unremarkable. No cardiomegaly. No significant pericardial effusion. No evidence of RV dysfunction. Bones/joints: Mild degenerative changes of the mid to lower thoracic spine. No acute fracture or destructive bone lesion is seen. No dislocation. Soft tissues: Unremarkable. Lymph nodes: Unremarkable. No enlarged lymph nodes. Kidneys and ureters: Perinephric edema involving the partially visualized left kidney. IMPRESSION: 1. The thoracic aorta is slightly calcified but nondilated. There is no aneurysm or dissection. 2. The pulmonary arterial tree is well opacified with contrast. No pulmonary emboli are identified. 3. Perinephric edema involving the partially visualized left kidney. Please see CT abdomen and pelvis. 4. Trace amount of scattered subsegmental atelectasis in the lung bases. No acute appearing infiltrate or consolidation is seen. Electronically signed by: Tomer Rm MD 03/21/25 22:50 PM
--- NOTE | 2025-03-21 22:52 | CT Scan Report ---
Exam(s): CTA ABDOMEN + PELVIS W/WO Contrast IV Amt: 115 ML OPTIRAY 320 EXAM: CT Angiography Abdomen and Pelvis Without and With Intravenous Contrast CLINICAL HISTORY: Reason for exam: eval dissection. TECHNIQUE: Axial computed tomographic angiography images of the abdomen and pelvis without and with intravenous contrast. CTDI is 47.2 mGy and DLP is 1840 mGy-cm. Automated exposure control was utilized for the study. A dose lowering technique was utilized adhering to the principles of ALARA. MIP reconstructed images were created and reviewed. CONTRAST: Patient received 115 ML OPTIRAY 320 of IV contrast COMPARISON: No relevant prior studies available. FINDINGS: VASCULATURE: Aorta: No acute findings. No abdominal aortic aneurysm. No dissection. Celiac trunk and mesenteric arteries: No acute findings. No occlusion or significant stenosis. Renal arteries: No acute findings. No occlusion or significant stenosis. Iliac arteries: No acute findings. No occlusion or significant stenosis. Lung bases: Unremarkable. No mass. No consolidation. ABDOMEN: Liver: Unremarkable. No mass. Gallbladder and bile ducts: Previous cholecystectomy. No biliary duct dilation or choledocholithiasis. Pancreas: Unremarkable. No ductal dilation. No mass. Spleen: Unremarkable. No splenomegaly. Adrenals: Unremarkable. No mass. Kidneys and ureters: Mild left hydronephrosis and hydroureter down to a 5 mm calculus in the left ureterovesicular junction. There is a slightly delayed left nephrogram. Stomach and bowel: Unremarkable. No obstruction. No mucosal thickening. PELVIS: Appendix: No findings to suggest acute appendicitis. Bladder: Unremarkable. No stones. No mass. Reproductive: Unremarkable as visualized. ABDOMEN and PELVIS: Intraperitoneal space: Unremarkable. No significant fluid collection. No free air. Bones/joints: Mild degenerative changes in the spine. No acute fracture or subluxation is seen. Soft tissues: Unremarkable. Lymph nodes: Unremarkable. No enlarged lymph nodes. IMPRESSION: 1. Mild left hydronephrosis and hydroureter down to a 5 mm calculus in the left ureterovesicular junction. There is a slightly delayed left nephrogram. 2. Unremarkable appearance of the arterial structures of the abdomen and pelvis. Electronically signed by: Tomer Rm MD 03/21/25 22:52 PM
[2025-03-21] MEDS: TAMSULOSIN HCL 0.4 MG CAP PO ONE (23:26)
[2025-03-21] MEDS: KETOROLAC TROMETHAMINE 15 MG/ML VIAL IV ONE (23:26)
[2025-03-21] MEDS: SODIUM CHLORIDE 0.9% 250 ML IV ONE (23:27)
[2025-03-22 00:01] LABS: Appearance Urine Clear (Clear); Bacteria Urine Automated None Seen (None Seen); Cast Urine Automated 0-2 /lpf (0-2); Epithelial Cell Urine Auto 0-2 /hpf (0-2); Glucose Urine UA Negative (Negative); WBC Urine Automated 0-5 /hpf (0-5)
--- NOTE | 2025-03-22 01:38 | History & Physical Report ---
Date of Service March 22, 2025 Assessment & Plan (1) Renal colic on left side: Plan: 75-year-old female with past medical history significant for hyperlipidemia, hypertension, diverticulosis of colon, rosacea, presents with severe abdominal pain started 7:30 PM tonight. Pain is located in the left flank and also also in the upper abdomen region associated with nausea. Pain was 10/10 in severity when she came to the ER. After pain medication currently pain is improved. Normal bowel and bladder movements. Denies any chest pain. When the pain was severe she was feeling short of breath. And was also sweating. When she was taken to CAT scan she had dizziness but that improved now. Denies any headache. Vision is okay. No runny nose or sore throat. Has some cough. Blood pressure was high when she came to the ER.Currently resting comfortably and hemodynamically stable. Left renal colic Came with abdominal pain and left flank pain CTA chest and abdomen pelvis done which shows left mild hydronephrosis and hydroureter with 5 mm calculus in the left uterovesical junction. Slightly delayed left nephrogram N.p.o., IV fluids, Flomax, IV pain meds as needed, IV antiemetics as needed UA is okay Urology consult in a.m. for further recommendation Elevated blood pressure Abnormal EKG Continue home losartan IV labetalol as needed Will follow repeat EKG Hyperlipidemia On statin Rosacea On doxycycline History of eating disorder Bupropion History of chronic cough and wheezing On albuterol HFA as needed DVT prophylaxis SCDs for now Disposition Med/telemetry Full code. History of Present Illness Chief Complaint: Abdominal pain Primary Care Provider: Shona Rios DO 75-year-old female with past medical history significant for hyperlipidemia, hypertension, diverticulosis of colon, rosacea, presents with severe abdominal pain started 7:30 PM tonight. Pain is located in the left flank and also also in the upper abdomen region associated with nausea. Pain was 10/10 in severity when she came to the ER. After pain medication currently pain is improved. Normal bowel and bladder movements. Denies any chest pain. When the pain was severe she was feeling short of breath. And was also sweating. When she was taken to CAT scan she had dizziness but that improved now. Denies any headache. Vision is okay. No runny nose or sore throat. Has some cough. Blood pressure was high when she came to the ER.Currently resting comfortably and hemodynamically stable. Past medical history. As mentioned above. Past surgical history. Breast lesion excision. . Cholecystectomy open. Colonoscopy. EGD. Ligation of the oviducts. . Bilateral cataracts. Right knee cartilage repair. Left finger tendon sheath incision. Social history. . Quit smoking in 2008. Smoked 0.5 pack a day for 30 years. Alcohol social drinking. No drug use. Family history. Uncle had cancer. Mother had dementia. Hypertension. TIA. Father had open heart surgery/[place]. Allergies Allergy/AdvReac Type Severity Reaction Status Date / Time No Known Allergies Allergy Verified 03/21/25 22:59 Home Medications Medication Instructions Recorded Confirmed Type doxycycline hyclate 50 mg capsule 50 mg PO Q OTHER DAY 01/31/21 03/21/25 History acetaminophen 325 mg capsule 650 mg (2 x 325 mg) PO Q6H PRN 02/01/21 03/21/25 Rx fever or pain #30 caps albuterol sulfate 90 mcg/actuation 2 puff inhalation Q4H PRN Wheezing 03/21/25 03/21/25 History aerosol inhaler bupropion HCl 300 mg 24 hr tablet, 300 mg PO QAM 03/21/25 03/21/25 History extended release losartan 100 mg tablet 100 mg PO DAILY 03/21/25 03/21/25 History rosuvastatin 5 mg tablet 5 mg PO DAILY 03/21/25 03/21/25 History valacyclovir 1 gram tablet 2 mg PO BID PRN Cold Sores 03/21/25 03/21/25 History Past Med/Surg History Problem List (Updated 03/22/25 @ 01:34 by Burke Kelly MD) Renal colic on left side Hx laparoscopic cholecystectomy (02/01/21) Laparoscopic cholecystectomy. Dr. Vivar 02/01/21 Uncontrolled hypertension Cholecystitis (Acute) Medical History (Updated 03/22/25 @ 01:34 by Burke Kelly MD) High blood pressure Surgical History (Updated 02/26/21 @ 08:11 by Zenon Vivar MD, FACS) H/O section Social History Smoking Status: Former smoker Hx Alcohol Use: Yes Alcohol type: wine Hx Substance Use: No Preferred Language: Kuwaiti Communication Ability: Effective Visual Impairment: No Limitations Cone Cleaner Required: No Beliefs That Will Affect Care: None Current Living Situation: Spouse Other Information That Helps Us Care for You: No Feels Safe at Home: Yes Safety Concerns: Feels Safe At This Time Assistive Devices: None Review of Systems Review of Systems: All systems reviewed & are unremarkable except as noted in HPI & below Physical Exam Physical Exam: General-Not in distress Head- atraumatic Eyes- PERRL. ENT- oropharynx clear Neck- supple, no JVD. Lungs- clear to auscultation no wheezing or crackles. Heart- regular rhythm; no murmur, no gallop. Abdomen- normal bowel sounds, soft, nontender, no distension Extremities- no pretibial edema, no erythema seen. Neuro- alert, oriented PERRL, no facial palsy; no dysarthria; moves extremities Results & Data Results & Data Vital Signs (Past 12 Hours) Vital Signs Temp Pulse Pulse Resp BP BP Pulse Ox 03/22/25 00:00 60 20 167/83 H 99 03/21/25 23:31 74 20 203/104 H 96 03/21/25 22:30 78 20 223/144 H 97 03/21/25 22:24 80 24 234/121 H 97 03/21/25 22:21 83 L 03/21/25 21:39 77 03/21/25 21:30 73 30 H 238/119 H 97 03/21/25 21:11 36.8 C 72 20 203/102 H 98 O2 Del Method O2 Flow Rate 03/22/25 00:00 Nasal Cannula 2 03/21/25 23:31 03/21/25 22:30 03/21/25 22:24 03/21/25 22:21 Room Air, Nasal Cannula 0 03/21/25 21:39 03/21/25 21:30 03/21/25 21:11 Room Air Diagnostic Findings Laboratory Results WBC 9.41 K/ul (4.8-10.8) 03/21/25 21:25 RBC 4.31 M/uL (4.20-5.40) 03/21/25 21:25 Hgb 13.2 g/dl (12.0-16.0) 03/21/25 21: POC Hgb 13.6 g/dl (12.0-16.0) 03/21/25 21: Hct 41.2 % (37.0-47.0) 03/21/25: POC Hct 40 % (37-47) 03/21/25 21: MCV 95.6 fL (80.0-100.0) 03/21/25: MCH 30.6 pg (25.0-34.0) 03/21/25: MCHC 32.0 g/dL (32.0-36.0) 03/21/25: RDW Std Deviation 44.7 fL (36.4-46.3) 03/21/25 RDW Coeff of Carey 12.6 % (11.5-14.5) 03/21/25 Plt Count 253 K/uL (130-400) 03/21/25: MPV 10.8 fL (9.4-12.4) 03/21/25: Immature Gran % (Auto) 0.4 % 03/21/25: Neut % (Auto) 68.2 % 03/21/25: Lymph % (Auto) 17.5 % 03/21/25: [place] % (Auto) 8.0 % 03/21/25: Eos % (Auto) 5.0 % 03/21/25: Baso % (Auto) 0.9 % 03/21/25 Neut # (Auto) 6.42 K/uL (1.40-6.50) 03/21/25: Lymph # (Auto) 1.65 K/uL (1.20-3.40) 03/21/25: [place] # (Auto) 0.75 K/uL (0.11-0.59) H 03/21/25: Eos # (Auto) 0.47 K/uL (0.00-0.50) 03/21/25: Baso # (Auto) 0.08 K/uL (0.00-0.20) 03/21/25: Immature Gran # (Auto) 0.04 K/uL (0.01-0.20) 09/11/25 21:25 PT 10.8 Seconds (9.0-12.0) 03/21/25 21:25 INR 1.0 (0.9-1.1) 03/21/25 21:25 APTT 30 Seconds (21-31) 03/21/25:25 PTT Ratio 1.1 03/21/25 21:25 POC Sodium 143 mmol/L (135-144) 03/21/25 21:57 Sodium 142 mmol/L (136-145) 03/21/25 21:25 POC Potassium 4.0 mmol/L (3.3-5.0) 03/21/25 21:57 Potassium 4.1 mmol/L (3.5-5.1) 03/21/25 21:25 POC Chloride 109 mmol/L (101-112) 03/21/25 21: Chloride 108 mmol/L (98-107) H 03/21/25 21:25 Carbon Dioxide 25 mmol/L (21-32) 03/21/25:25 POC Total CO2 21 mmol/L (24-31) L 03/21/25 21:57 Anion Gap 9 (3-11) 03/21/25 21:25 POC Anion Gap 18.0 mmol/L (16-25) 03/21/25 21:57 POC BUN 20 mg/dl (7-18) H 03/21/25 21:57 BUN 20 mg/dl (6-23) 03/21/25:25 Creatinine 0.91 mg/dl (0.6-1.2) 03/21/25: POC Creatinine 1.0 mg/dl (0.6-1.3) 03/21/25 21:57 Est Cr Clr Drug Dosing Not Reportable 03/21/25 21: eGFR 66.61 03/21/25:25 BUN/Creatinine Ratio 22.0 (10-20) H 03/21/25 21:25 Glucose 138 mg/dl (70-99(Fasting)) H 03/21/25:25 POC Glucose (other) 132 mg/dl (70-99) H 03/21/25:57 Calcium 9.3 mg/dl (8.6-10.3) 03/21/25:25 POC Ioniz Calcium Miquel 1.16 mmol/l (1.12-1.32) 09/11/25 21:57 Total Bilirubin 0.3 mg/dl (0.2-1.0) 03/21/25 21:25 AST 23 U/L (13-39) 03/21/25 21: ALT 18 U/L (7-52) 03/21/25 21:25 Alkaline Phosphatase 105 U/L (34-104) H 03/21/25 21:25 Troponin I High Sens 5.0 pg/ml (0-14) 03/21/25 21: Total Protein 7.6 gm/dl (6.0-8.3) 03/21/25 21: Albumin 4.4 gm/dl (3.4-5.0) 03/21/25: Globulin 3.2 gm/dl (2.5-4.0) 03/21/25: Albumin/Globulin Ratio 1.4 (0.9-2) 03/21/25 21:25 Urine Color Yellow 03/21/25 23:30 Urine Appearance Clear (Clear) 03/21/25 23:30 Urine pH 7.5 (4.5-7.5) 03/21/25 23:30 Ur Specific [place] > 1.045 (1.000-1.030) H 03/21/25 23:30 Urine Protein Negative (Negative) 03/21/25 23:30 Urine Glucose (UA) Negative (Negative) 03/21/25 23:30 Urine Ketones Negative (Negative) 03/21/25 23:30 Urine Blood Trace (Negative) H 03/21/25 23:30 Urine Nitrite Negative (Negative) 03/21/25 23:30 Urine Bilirubin Negative (Negative) 03/21/25 23:30 Urine Urobilinogen Negative (Negative) 03/21/25 23:30 Ur Leukocyte Esterase Negative (Negative) 03/21/25 23:30 Urine WBC (Auto) 0-5 /hpf (0-5) 03/21/25 23:30 Urine RBC (Auto) 3-5 /hpf (0-2) H 03/21/25 23:30 U Hyaline Cast (Auto) 0-2 /lpf (0-2) 03/21/25 23:30 U Epithel Cells (Auto) 0-2 /hpf (0-2) 03/21/25 23:30 Urine Bacteria (Auto) None Seen (None Seen) 03/21/25 23:30 Urine Comment 03/21/25 23:30 Impressions Chest X-Ray 03/21/25 21:32 Exam(s): XR CXR 1 VIEW EXAM: XR Chest, 1 View CLINICAL HISTORY: Reason for exam: Chest pain, nonspecific. TECHNIQUE: Frontal view of the chest. COMPARISON: 01/31/2021 FINDINGS: Lungs: Soft tissue artifact of the lung bases from large body habitus and portable technique. No acute focal infiltrate or consolidation is seen. Pleural space: Unremarkable. No pneumothorax. Heart: Unremarkable. No cardiomegaly. Mediastinum: Unremarkable. Normal mediastinal contour. Bones/joints: Mild osteophytosis in the mid to lower thoracic spine, similar to previous. No acute fracture. IMPRESSION: Soft tissue artifact of the lung bases from large body habitus and portable technique. No acute focal infiltrate or consolidation is seen. Electronically signed by: Tomer Rm MD 03/21/25 22:46 PM Abdomen/Pelvis CTA 03/21/25 21:44 Exam(s): CTA ABDOMEN + PELVIS W/WO Contrast IV Amt: 115 ML OPTIRAY 320 EXAM: CT Angiography Abdomen and Pelvis Without and With Intravenous Contrast CLINICAL HISTORY: Reason for exam: eval dissection. TECHNIQUE: Axial computed tomographic angiography images of the abdomen and pelvis without and with intravenous contrast. CTDI is 47.2 mGy and DLP is 1840 mGy-cm. Automated exposure control was utilized for the study. A dose lowering technique was utilized adhering to the principles of ALARA. MIP reconstructed images were created and reviewed. CONTRAST: Patient received 115 ML OPTIRAY 320 of IV contrast COMPARISON: No relevant prior studies available. FINDINGS: VASCULATURE: Aorta: No acute findings. No abdominal aortic aneurysm. No dissection. Celiac trunk and mesenteric arteries: No acute findings. No occlusion or significant stenosis. Renal arteries: No acute findings. No occlusion or significant stenosis. Iliac arteries: No acute findings. No occlusion or significant stenosis. Lung bases: Unremarkable. No mass. No consolidation. ABDOMEN: Liver: Unremarkable. No mass. Gallbladder and bile ducts: Previous cholecystectomy. No biliary duct dilation or choledocholithiasis. Pancreas: Unremarkable. No ductal dilation. No mass. Spleen: Unremarkable. No splenomegaly. Adrenals: Unremarkable. No mass. Kidneys and ureters: Mild left hydronephrosis and hydroureter down to a 5 mm calculus in the left ureterovesicular junction. There is a slightly delayed left nephrogram. Stomach and bowel: Unremarkable. No obstruction. No mucosal thickening. PELVIS: Appendix: No findings to suggest acute appendicitis. Bladder: Unremarkable. No stones. No mass. Reproductive: Unremarkable as visualized. ABDOMEN and PELVIS: Intraperitoneal space: Unremarkable. No significant fluid collection. No free air. Bones/joints: Mild degenerative changes in the spine. No acute fracture or subluxation is seen. Soft tissues: Unremarkable. Lymph nodes: Unremarkable. No enlarged lymph nodes. IMPRESSION: 1. Mild left hydronephrosis and hydroureter down to a 5 mm calculus in the left ureterovesicular junction. There is a slightly delayed left nephrogram. 2. Unremarkable appearance of the arterial structures of the abdomen and pelvis. Electronically signed by: Tomer Rm MD 03/21/25 22:52 PM Chest CTA 03/21/25 21:44 Exam(s): CTA CHEST W/WO Contrast IV Amt: 115 ML OPTIRAY 320 EXAM: CT Angiography Chest With Intravenous Contrast CLINICAL HISTORY: Reason for exam: eval aortic dissection. TECHNIQUE: Axial computed tomographic angiography images of the chest with intravenous contrast. CTDI is 47.2 mGy and DLP is 1840 mGy-cm. Automated exposure control was utilized for the study. A dose lowering technique was utilized adhering to the principles of ALARA. MIP reconstructed images were created and reviewed. CONTRAST: Patient received 115 ML OPTIRAY 320 of IV contrast COMPARISON: Chest x-ray from 03/21/2025 and 01/31/2021 FINDINGS: Pulmonary arteries: The pulmonary arterial tree is well opacified with contrast. No pulmonary emboli are identified. Aorta: The thoracic aorta is slightly calcified but nondilated. There is no aneurysm or dissection. Lungs: Trace amount of scattered subsegmental atelectasis in the lung bases. No acute appearing infiltrate or consolidation is seen. Pleural space: Unremarkable. No significant effusion. No pneumothorax. Heart: Unremarkable. No cardiomegaly. No significant pericardial effusion. No evidence of RV dysfunction. Bones/joints: Mild degenerative changes of the mid to lower thoracic spine. No acute fracture or destructive bone lesion is seen. No dislocation. Soft tissues: Unremarkable. Lymph nodes: Unremarkable. No enlarged lymph nodes. Kidneys and ureters: Perinephric edema involving the partially visualized left kidney. IMPRESSION: 1. The thoracic aorta is slightly calcified but nondilated. There is no aneurysm or dissection. 2. The pulmonary arterial tree is well opacified with contrast. No pulmonary emboli are identified. 3. Perinephric edema involving the partially visualized left kidney. Please see CT abdomen and pelvis. 4. Trace amount of scattered subsegmental atelectasis in the lung bases. No acute appearing infiltrate or consolidation is seen. Electronically signed by: Tomer Rm MD 03/21/25 22:50 PM ECG Additional Comments: ECG. Normal sinus rhythm rate of 65. Possible left atrial enlargement. Nonspecific ST abnormality inferior leads. QTc 388 Code Status & VTE Plan VTE Prophylaxis Plan VTE Prophylaxis will be ordered: Yes
[2025-03-22] MEDS ORDERED: ALBUTEROL HFA 8 GM INHALER INH PRN (02:57)
[2025-03-22] MEDS ORDERED: ONDANSETRON INJ 2 MG/ML 2 ML VIAL IV PRN (02:57)
[2025-03-22] MEDS ORDERED: LABETALOL HCL IV 5 MG/ML 20ML IV PRN (02:57)
[2025-03-22] MEDS ORDERED: ACETAMINOPHEN 1,000 MG/100 ML VIAL IV PRN (02:57)
[2025-03-22] MEDS ORDERED: HYDROmorphone INJ 0.5 MG/0.5 ML SYR IV PRN ×2 (02:57)
[2025-03-22] MEDS: SODIUM CHLORIDE 0.9% 1,000 ML IV SCH (03:12)
[2025-03-22 07:02] LABS: Hematocrit (blood only) 35.7 % (37.0-47.0); Hemoglobin 11.5 g/dl (12.0-16.0); Immature Granulocytes # (auto) 0.05 K/uL (0.01-0.20); Immature Granulocytes % (auto) 0.5 %; Mean Corpuscular Hemoglobin 30.9 pg (25.0-34.0); Mean Corpuscular Volume 96.0 fL (80.0-100.0); Platelet Count 205 K/uL (130-400); RDW Standard Deviation 45.2 fL (36.4-46.3); Red Blood Count 3.72 M/uL (4.20-5.40); White Blood Count 10.57 K/ul (4.8-10.8)
[2025-03-22 07:20] LABS: Anion Gap 4.0 (3-11); Blood Urea Nitrogen 19.0 mg/dl (6-23); Calcium 8.7 mg/dl (8.6-10.3); Carbon Dioxide 25.0 mmol/L (21-32); Chloride 112.0 mmol/L (98-107); Creatinine Clr Calc Pharmacy 62.2 ml/min; Glucose 109.0 mg/dl (70-99(Fasting)); Magnesium 2.1 mg/dl (1.7-2.4); Potassium 4.7 mmol/L (3.5-5.1); Sodium 141.0 mmol/L (136-145)
[2025-03-22 07:42] VITALS: RESP 18
[2025-03-22] MEDS: ROSUVASTATIN CALCIUM 5 MG TAB PO SCH (08:47)
[2025-03-22] MEDS: TAMSULOSIN HCL 0.4 MG CAP PO SCH (08:48)
[2025-03-22] MEDS: LOSARTAN POTASSIUM 50 MG TAB PO SCH (08:48)
--- NOTE | 2025-03-22 09:32 | Urology Consultation ---
Date of Consultation March 22, 2025 Assessment & Plan (1) Left ureteral stone: (2) Renal colic on left side: 75-year-old female admitted for left renal colic secondary to an obstructing 5 mm left UVJ stone. Patient afebrile and hemodynamically stable Labs reviewedcreatinine 0.73, WBC 10.57, hemoglobin 11.5 Urinalysis was not suggestive of infection CTA of abdomen and pelvis reviewed and demonstrates mild left hydronephrosis secondary to an obstructing 5 mm left UVJ stone; additional nonobstructing left renal calculus noted Subjectively feeling much better today, denies pain at present We discussed options for stone management including trial of passage/medical expulsive therapy versus surgical intervention with ureteral stent We discussed she has a decent probability of passing her stone given stone size and location After discussion, she elects trial of passage Patient can be discharged from perspective when medically stable Patient can resume diet today and hydrate liberally Recommend continue Flomax and pain management, continue to strain all urine Will arrange outpatient follow-up with our service for ongoing management will sign off, please contact our service with any additional questions or concerns History of Present Illness Reason for Consultation: left renal colic Attending Physician: Lopez Wilcox MD History of Present Illness This is a 75-year-old female who presented to the emergency department on 03/21/2025 for evaluation of left flank and abdominal pain. On arrival to ED, s he was afebrile, significantly hypertensive at 203/102. Lab work showed WBC 9.41, hemoglobin 13.2, creatinine 0.91. Urinalysis showed trace blood, 3-5 RBC/hpf, otherwise unremarkable. Workup included CTA abdomen and pelvis which demonstrated mild left hydronephrosis and hydroureter secondary to an obstructing 5 mm calculus in the left UVJ, slightly delayed left nephrogram. Additional nonobstructing left renal calculus. ED course: Ondansetron and fentanyl. She was admitted to the hospital medicine service for left flank pain secondary to left ureteral stone. Urology is consulted for left renal colic. Labs today reviewedcreatinine 0.73, WBC 10.57, hemoglobin 11.5 Patient seen and examined at bedside this morning. She is resting comfortably in bed, arouses to her name. Denies flank or abdominal pain at present. She is voiding spontaneously. No nausea or vomiting. No fever or chills. No prior history of kidney stones. Currently NPO. Allergies Allergy/AdvReac Type Severity Reaction Status Date / Time No Known Allergies Allergy Verified 03/21/25 22:59 Home Medications Medication Instructions Recorded Confirmed Type doxycycline hyclate 50 mg capsule 50 mg PO Q OTHER DAY 01/31/21 03/21/25 History acetaminophen 325 mg capsule 650 mg (2 x 325 mg) PO Q6H PRN 02/01/21 03/21/25 Rx fever or pain #30 caps albuterol sulfate 90 mcg/actuation 2 puff inhalation Q4H PRN Wheezing 03/21/25 03/21/25 History aerosol inhaler bupropion HCl 300 mg 24 hr tablet, 300 mg PO QAM 03/21/25 03/21/25 History extended release losartan 100 mg tablet 100 mg PO DAILY 03/21/25 03/21/25 History rosuvastatin 5 mg tablet 5 mg PO DAILY 03/21/25 03/21/25 History valacyclovir 1 gram tablet 2 mg PO BID PRN Cold Sores 03/21/25 03/21/25 History Patient History Medical History High blood pressure Surgical History H/O section Social History Smoking Status: Former smoker Hx Alcohol Use: Yes Alcohol type: wine Hx Substance Use: No Preferred Language: [place] Communication Ability: Effective Visual Impairment: No Limitations Marine Service Manager Required: No Beliefs That Will Affect Care: None Current Living Situation: Spouse Other Information That Helps Us Care for You: No Feels Safe at Home: Yes Safety Concerns: Feels Safe At This Time Assistive Devices: None Review of Systems Review of Systems: All systems reviewed & are unremarkable except as noted in HPI & below Physical Exam Constitutional: no acute distress Respiratory: normal respiratory effort; no respiratory distress and no labored breathing Gastrointestinal (Abdomen): Inspection/Auscultation: abdomen normal to inspection Musculoskeletal: Head/Neck/Chest: normocephalic Neurologic: moves all extremities and awake Psychiatric: Orientation: alert and oriented x 3 Results & Data Vital Signs (Past 12 Hours) Vital Signs Temp Pulse Pulse Resp BP BP BP 03/22/25 07:42 36.7 C 59 L 18 112/67 03/22/25 02:57 36.9 C 67 16 135/73 03/22/25 02:57 03/22/25 02:23 03/22/25 02:20 03/22/25 02:20 36.9 C 67 16 135/73 03/22/25 01:09 66 21 03/22/25 01:00 135/66 03/22/25 01:00 135/66 03/22/25 01:00 135/66 03/22/25 00:46 147/67 H 03/22/25 00:46 147/67 H 03/22/25 00:30 140/76 03/22/25 00:30 140/76 03/22/25 00:30 59 L 18 03/22/25 00:15 65 21 03/22/25 00:00 167/83 H 03/22/25 00:00 167/83 H 03/22/25 00:00 62 19 03/22/25 00:00 60 20 167/83 H 03/21/25 23:39 66 22 03/21/25 23:31 74 20 203/104 H 03/21/25 22:30 78 20 223/144 H 03/21/25 22:24 80 24 234/121 H 03/21/25 22:21 03/21/25 21:39 77 Pulse Ox Pulse Ox O2 Del Method O2 Del Method O2 Flow Rate 03/22/25 07:42 100 Nasal Cannula 3 03/22/25 02:57 92 Room Air 03/22/25 02:57 92 Room Air 03/22/25 02:23 Nasal Cannula 3 03/22/25 02:20 Nasal Cannula 3 03/22/25 02:20 92 Room Air 03/22/25 01:09 94 03/22/25 01:00 03/22/25 01:00 03/22/25 01:00 03/22/25 00:46 03/22/25 00:46 03/22/25 00:30 03/22/25 00:30 03/22/25 00:30 96 03/22/25 00:15 95 Nasal Cannula 3 03/22/25 00:00 03/22/25 00:00 03/22/25 00:00 99 03/22/25 00:00 99 Nasal Cannula 2 03/21/25 23:39 96 03/21/25 23:31 96 03/21/25 22:30 97 03/21/25 22:24 97 03/21/25 22:21 83 L Room Air, Nasal Cannula 0 03/21/25 21:39 PG Care Time/CCT Total # of Minutes Spent Total Time Spent with Patient: Total time spent is greater than 50% in coordination of care (as documented) at patient's floor/unit and/or counseling patient: Coding Level of Care Code 31810 INT INP/OBS CARE 2/55MIN Diagnoses Left ureteral stone N20.1 Renal colic on left side N23
[2025-03-22 11:25] VITALS: PULSE 65; TEMP 98.2; O2SAT 95
--- NOTE | 2025-03-22 15:55 | Communication Note ---
Date of Service: March 22, 2025 By CMS guidelines, a determination that the admission or continued stay is not medically necessary has been made by a member of the Utilization Review committee and a physician for this hospital stay. Therefore, a Code 44 will be completed and the inpatient admission will be changed to outpatient.
[2025-03-22 16:04] VITALS: BP 135/73
--- NOTE | 2025-03-22 16:09 | Discharge Summary ---
Date of Service March 22, 2025 Admission HPI Per Admitting Provider 75-year-old female with past medical history significant for hyperlipidemia, hypertension, diverticulosis of colon, rosacea, presents with severe abdominal pain started 7:30 PM tonight. Pain is located in the left flank and also also in the upper abdomen region associated with nausea. Pain was 10/10 in severity when she came to the ER. After pain medication currently pain is improved. Normal bowel and bladder movements. Denies any chest pain. When the pain was severe she was feeling short of breath. And was also sweating. When she was taken to CAT scan she had dizziness but that improved now. Denies any headache. Vision is okay. No runny nose or sore throat. Has some cough. Blood pressure was high when she came to the ER.Currently resting comfortably and hemodynamically stable. Past medical history. As mentioned above. Past surgical history. Breast lesion excision. . Cholecystectomy open. Colonoscopy. EGD. Ligation of the oviducts. Bilateral cataracts. Right knee cartilage repair. Left finger tendon sheath incision. Social history. . Quit smoking in 2008. Smoked 0.5 pack a day for 30 years. Alcohol social drinking. No drug use. Family history. Uncle had cancer. Mother had dementia. Hypertension. TIA. Father had open heart surgery/DC. Admission Exam Per Admitting Provider General-Not in distress Head- atraumatic Eyes- PERRL. ENT- oropharynx clear Neck- supple, no JVD. Lungs- clear to auscultation no wheezing or crackles. Heart- regular rhythm; no murmur, no gallop. Abdomen- normal bowel sounds, soft, nontender, no distension Extremities- no pretibial edema, no erythema seen. Neuro- alert, oriented PERRL, no facial palsy; no dysarthria; moves extremities Principal Diagnosis Renal colic Discharge Exam General- WD/WN F in NAD Head- atraumatic Eyes- PERRL ENT- oropharynx clear Neck- supple Lungs- clear to auscultation, no wheezing or crackles. Heart- regular rhythm; no murmur Abdomen- normal bowel sounds, soft, nontender, no distension Extremities- no pretibial edema, no erythema seen. moves extremities Neuro- alert, oriented PERRL, no facial palsy; no dysarthria; moves extremities Discharge Data Allergies Allergy/AdvReac Type Severity Reaction Status Date / Time No Known Allergies Allergy Verified 03/21/25 22:59 Consultations 03/22/25 00:19 ED Decision to Admit Stat 03/22/25 08:00 Consult Urology Routine Ordered Studies 03/21/25 21:44 CT angio abd pelvis wo/w con Stat FINDINGS: VASCULATURE: Aorta: No acute findings. No abdominal aortic aneurysm. No dissection. Celiac trunk and mesenteric arteries: No acute findings. No occlusion or significant stenosis. Renal arteries: No acute findings. No occlusion or significant stenosis. Iliac arteries: No acute findings. No occlusion or significant stenosis. Lung bases: Unremarkable. No mass. No consolidation. ABDOMEN: Liver: Unremarkable. No mass. Gallbladder and bile ducts: Previous cholecystectomy. No biliary duct dilation or choledocholithiasis. Pancreas: Unremarkable. No ductal dilation. No mass. Spleen: Unremarkable. No splenomegaly. Adrenals: Unremarkable. No mass. Kidneys and ureters: Mild left hydronephrosis and hydroureter down to a 5 mm calculus in the left ureterovesicular junction. There is a slightly delayed left nephrogram. Stomach and bowel: Unremarkable. No obstruction. No mucosal thickening. PELVIS: Appendix: No findings to suggest acute appendicitis. Bladder: Unremarkable. No stones. No mass. Reproductive: Unremarkable as visualized. ABDOMEN and PELVIS: Intraperitoneal space: Unremarkable. No significant fluid collection. No free air. Bones/joints: Mild degenerative changes in the spine. No acute fracture or subluxation is seen. Soft tissues: Unremarkable. Lymph nodes: Unremarkable. No enlarged lymph nodes. IMPRESSION: 1. Mild left hydronephrosis and hydroureter down to a 5 mm calculus in the left ureterovesicular junction. There is a slightly delayed left nephrogram. 2. Unremarkable appearance of the arterial structures of the abdomen and pelvis. CT angio chest dissec wo/w con Stat FINDINGS: Pulmonary arteries: The pulmonary arterial tree is well opacified with contrast. No pulmonary emboli are identified. Aorta: The thoracic aorta is slightly calcified but nondilated. There is no aneurysm or dissection. Lungs: Trace amount of scattered subsegmental atelectasis in the lung bases. No acute appearing infiltrate or consolidation is seen. Pleural space: Unremarkable. No significant effusion. No pneumothorax. Heart: Unremarkable. No cardiomegaly. No significant pericardial effusion. No evidence of RV dysfunction. Bones/joints: Mild degenerative changes of the mid to lower thoracic spine. No acute fracture or destructive bone lesion is seen. No dislocation. Soft tissues: Unremarkable. Lymph nodes: Unremarkable. No enlarged lymph nodes. Kidneys and ureters: Perinephric edema involving the partially visualized left kidney. IMPRESSION: 1. The thoracic aorta is slightly calcified but nondilated. There is no aneurysm or dissection. 2. The pulmonary arterial tree is well opacified with contrast. No pulmonary emboli are identified. 3. Perinephric edema involving the partially visualized left kidney. Please see CT abdomen and pelvis. 4. Trace amount of scattered subsegmental atelectasis in the lung bases. No acute appearing infiltrate or consolidation is seen. Hospital Course (1) Renal colic on left side: 75 yo F with past medical history significant for hyperlipidemia, hypertension, diverticulosis of colon, rosacea, presents with severe abdominal pain started 7:30 PM tonight. Pain is located in the left flank and also also in the upper abdomen region associated with nausea. Pain was 10/10 in severity when she came to the ER. After pain medication currently pain is improved. Normal bowel and bladder movements. Denies any chest pain. When the pain was severe she was feeling short of breath. And was also sweating. When she was taken to CAT scan she had dizziness but that improved now. Denies any headache. Vision is okay. No runny nose or sore throat. Has some cough. Blood pressure was high when she came to the ER.Currently resting comfortably and hemodynamically stable. Left renal colic Came with abdominal pain and left flank pain CTA chest and abdomen pelvis done which shows left mild hydronephrosis and hydroureter with 5 mm calculus in the left uterovesical junction. Slightly delayed left nephrogram N.p.o., IV fluids, Flomax, IV pain meds as needed, IV antiemetics as needed UA is okay Urology consult in a.m. for further recommendation 03/22 Urology consulted - no plan for surgical intervention at this time , plan for trial of passage/medical expulsive therapy. Pt has a decent probability of passing her stone given stone size and location. Pt currently feels well, denies pain. Eating. Wants to be discharged. She will follow up w/ urology as outpt. Elevated blood pressure Continue home losartan IV labetalol as needed elevated BP secondary to pain Currently BP well controlled, pt's pain also well controlled Hyperlipidemia On statin Rosacea On doxycycline History of eating disorder Bupropion History of chronic cough and wheezing On albuterol HFA as needed currently not wheezing, and on RA saturating 95% Total Time Total Time Spent Total Time Spent (In Minutes): 40 Discharge Plan Discharge Items Patient Disposition: Home - Self-Care Reason For Visit: RENAL COLIC, ELEVATED BP Discharge Diagnosis: Renal colic Activity: Per Instructions section Non-emergency contact: Primary Care Provider and Urologist Call non-emergency contact if: you have any medication questions and your symptoms worsen Follow-up/Referrals: Shona Rios, [Primary Care Provider] - (Date & Time 03/27/2025 10:00 AM Provider: Gabi Mancia MD General Internal Medicine [facility] ) Diet: Regular Addtl Attending Provider Instructions: Follow up with primary care physician and urologist. Make sure to stay well hydrated. Take tamsulosin daily. For pain, you can take Tylenol, up to 3,000 mg a day. For more severe pain, you can take oxycodone 5 mg every 4 hours as needed as prescribed. Pending Studies at Discharge: No Stand-Alone Forms: [facility] [place], Smoking Cessation Medications and DC Order Prescriptions: New tamsulosin 0.4 mg Capsule 0.4 mg PO QAM Qty: 20 0RF oxycodone 5 mg Tablet 5 mg PO Q4H PRN (Reason: pain) Qty: 14 0RF Continued doxycycline hyclate 50 mg capsule 50 mg PO Q OTHER DAY acetaminophen 325 mg capsule 650 mg PO Q6H PRN (Reason: fever or pain) Qty: 30 0RF valacyclovir 1 gram tablet 2 mg PO BID PRN (Reason: Cold Sores) albuterol sulfate 90 mcg/actuation HFA aerosol inhaler 2 puff INHALATION Q4H PRN (Reason: Wheezing) losartan 100 mg tablet 100 mg PO DAILY rosuvastatin 5 mg tablet 5 mg PO DAILY bupropion HCl 300 mg tablet extended release 24 hr 300 mg PO QAM Discharge Orders: Discharge Order (Routine); Ordered 03/22/25 Ordered By: Lopez Wilcox Admission Data Admit Date/Time: 03/22/25 01:24 Attending Provider: Lopez Wilcox Admit Provider: Burke Kelly Primary Care Provider: Shona Rios Other Providers: Burke Kelly; Ahmet Scherer; Nevin Moore; Yehuda Moran; Breonna Leos; Young Del Real; Kandice Perdue; Hiram Valle; Anjali Gutiérrez; Sj Dorsey; Juan Miguel Lanza
--- NOTE | 2025-03-22 22:36 | Electrocardiogram Report ---
Test Reason : Blood Pressure : */* mmHG Vent. Rate : 65 BPM Atrial Rate : 65 BPM P-R Int : 182 ms QRS Dur : 82 ms QT Int : 374 ms P-R-T Axes : 9 51 1 degrees QTcB Int : 388 ms Normal sinus rhythm Possible Left atrial enlargement Nonspecific ST abnormality Abnormal ECG When compared with ECG of 31-Jan-2021 04:24, Questionable change in QRS axis Nonspecific T wave abnormality now evident in Inferior leads Confirmed by Mando Mena ([id number]) on 03/22/2025 10:35:56 PM Referred By: Confirmed By: Mando Mena
[2025-03-23] MEDS ORDERED: DOXYCYCLINE HYCLATE 50 MG CAP PO SCH (09:00)
== END 2025-03-22 17:39 | disposition home or self-care (01) | DRG 694 ==
LOC: ED 21:08 → INTOOBSV 03-22 01:24 → 2N 03-22 01:24